=== PATIENT | female | born 1960 | race Caucasian/White ===

== ENCOUNTER 2018-08-30 10:28 | Inpatient (IN) ==
[2018-08-30] MEDS ORDERED: Metoclopramide 10 MG/2 ML VIAL IVP ONE (11:10)
[2018-08-30] MEDS ORDERED: 0.9 % Sodium Chloride 1,000 ML IVC ONE (11:10)
--- NOTE | 2018-08-30 11:15 | Emergency Department Note ---
Disposition Clinical Impression: Malaise, Hypokalemia Migraine Qualifiers: Migraine type: unspecified Status migrainosus presence: without status migrainosus Intractability: not intractable Qualified Code(s): G43.909 - Migraine, unspecified, not intractable, without status migrainosus Disposition: Admitted As Inpatient Condition: Fair Referrals: Eleuterio Saleh, OPERATIONS EXECUTIVE [Primary Care Provider] - Forms: ED Satisfaction Letter Time of Disposition: 13:11 Headache HPI - General Chief Complaint: ED Headache Stated Complaint: Headache, congestion Time Seen by Provider: 08/30/18 11:04 Source: patient, family Mode of arrival: wheelchair Limitations: no limitations Nursing Notes Reviewed: Yes Vital Signs Reviewed: Yes - History of Present Illness HPI Narrative: Patient presents to the ED via wheelchair with the chief complaint of headache, body aches. Patient reports she has been sick for about 3 weeks. Her was sick recently with similar symptoms. She does have a history of headaches but states this one is lasting longer than her previous ones. She denies any fever or chills. She is been having a productive cough but does have non-oxygen dependent COPD. She does have some chest tightness consistent with her previous COPD, but does have a new pleuritic component when she coughs. No history of DVT or PE. She states that she has been having some epigastric abdominal pain as well as nausea, decreased appetite, but no vomiting. reports she has been having some nonbloody, non-melanic diarrhea. Patient reports feeling very rundown and tired. She also has a history of MS Pain Scale: 10 - Related Data Home Medications Medication Instructions Recorded Confirmed Albuterol Sulfate [Proair 90 mcg IH DAILY 03/07/15 03/11/18 Respiclick] Aspirin 81 mg PO DAILY 03/07/15 03/11/18 BuPROPion SR (12 HR) [Wellbutrin 150 mg PO BID 03/07/15 03/11/18 SR] Clopidogrel [Plavix] 75 mg PO DAILY 03/07/15 03/11/18 Colesevelam HCl [Welchol] 625 mg PO DAILY 03/07/15 03/08/15 Divalproex Sodium [Depakote 500 mg PO BID 03/07/15 03/11/18 Sprinkle] Donepezil HCl [Donepezil HCl Odt] 10 mg PO DAILY 03/07/15 03/11/18 Ferrous Sulfate 325 mg PO BID 03/07/15 03/11/18 Gabapentin [Neurontin] 800 mg PO TID 03/07/15 03/11/18 Lansoprazole [Prevacid] 30 mg PO BIDAC 03/07/15 03/11/18 Levomefolate/B6/B12/Algal Oil 1 each PO AD 03/07/15 03/11/18 [Foltanx Rf Capsule] Lisinopril [Zestril] 2.5 mg PO DAILY 03/07/15 03/08/15 Loratadine [Claritin] 10 mg PO DAILY 03/07/15 03/11/18 Metformin [Glucophage] 500 mg PO BID 03/07/15 03/08/15 Nabumetone [Relafen] 500 mg PO BID 03/07/15 03/11/18 Ondansetron ODT [Zofran ODT] 4 mg SL BID 03/07/15 03/11/18 Oxycodone HCl [Oxycontin] 15 mg PO Q6H PRN 03/07/15 03/11/18 Quetiapine Fumarate [Seroquel] 50 mg PO DAILY 03/07/15 03/11/18 Raloxifene [Evista] 60 mg PO DAILY 03/07/15 03/11/18 Ranitidine HCl [Zantac] 150 mg PO BID 03/07/15 03/11/18 Tizanidine [Zanaflex] 2 mg PO QID 03/07/15 03/11/18 Topiramate [Topamax] 100 mg PO DAILY 03/07/15 03/11/18 Dexlansoprazole [Dexilant] 60 mg PO DAILY 03/11/18 03/11/18 Eluxadoline [Viberzi] 100 mg PO BID 03/11/18 03/11/18 Ezetimibe/Simvastatin [Vytorin each PO DAILY 03/11/18 10-80 mg Tablet] Rosuvastatin [Crestor] 40 mg PO DAILY 03/11/18 03/11/18 Teriflunomide [Aubagio] 7 mg PO DAILY 03/11/18 03/11/18 Tiotropium [Spiriva] 18 mcg IH 0700 03/11/18 03/11/18 predniSONE [PredniSONE] 20 mg PO DAILY 03/11/18 03/11/18 Previous Rx's Medication Instructions Recorded Sulfamethoxazole/Trimeth SS 1 each PO BID #14 tablet 09/30/15 [Bactrim] PredniSONE [Deltasone] 60 mg PO DAILY #15 tablet 03/11/18 Azithromycin [Zithromax] 0 mg PO Q24H #6 tablet 03/30/18 Benzonatate [Tessalon] 200 mg PO TID #20 capsule 03/30/18 Allergies Allergy/AdvReac Type Severity Reaction Status Date / Time No Known Allergies Allergy Verified 06/29/18 14:37 Review of Systems: As reviewed in the HPI. All other systems reviewed are negative or normal. Headache PMH - Past Medical History Medical history: Reports: diabetes, hyperlipidemia Female Surgical History: Reports: hysterectomy Psychiatric history: Reports: depression JOB SITE SUPERVISOR history: Reports: no JOB SITE SUPERVISOR history, bilateral tubal ligation - Social History Smoking Status: Current every day smoker Alcohol use: Reports: none Drug use: Reports: none Physical Exam CONSTITUTIONAL: [ill but non-toxic appearing, alert and in no acute distress] EYES: [EOMI, clear conjunctiva, PERRLA] HENT: [Normocephalic, atraumatic, moist mucus membranes, normal oropharynx] NECK: [normal inspection, full ROM, trachea midline, no obvious swelling] PULMONARY: [normal lung sounds bilaterally, normal chest rise and fall, no respiratory distress or stridor, no wheezes, no rales, no rhonchi CARDIOVASCULAR: [regular rate, regular rhythm, normal heart sounds, no murmurs, distal extremities are warm and well perfused] GASTROINSTESTINAL: [soft, non-tender, non-rigid, non-distended, no guarding, no rebound, normal bowel sounds] GENITOURINARY/RECTAL: [deferred] NEUROLOGIC: [Alert, oriented x3, normal speech, moves all extremities] EXTREMITIES: [Normal inspection, full ROM, no tenderness, no pedal edema, normal capillary refill] MUSCULOSKELETAL: [no gross deformities, atraumatic] SKIN: [No cyanosis, no diaphoresis, normal color, warm, no rash] PSYCHIATRIC: [flat affect] - General Limitations: no limitations General appearance: alert, in no apparent distress Course Course Narrative: Patient's head CT and chest x-ray are normal. Influenza negative. She is profoundly hypokalemic. We will replace with 40 by mouth and 40 IV. She will need to be admitted for further replacement rehydration. Patient family agreeable with plan - Reevaluation(s) Reevaluation #1: EKG shows sinus rhythm, rate 55, normal axis, flattened T waves throughout consistent with hypokalemia. No acute ischemic change Vital Signs Temperature 97.4 F L 08/30/18 10:41 Pulse Rate 57 08/30/18 10:41 Respiratory Rate 16 08/30/18 10:41 Blood Pressure 95/62 08/30/18 10:41 O2 Sat by Pulse Oximetry 96 08/30/18 10:41 Temperature 97.4 F L 08/30/18 10:41 Pulse Rate 54 08/30/18 13:01 Respiratory Rate 18 08/30/18 13:01 Blood Pressure 101/64 08/30/18 13:01 O2 Sat by Pulse Oximetry 97 08/30/18 13:01 Oxygen Delivery Oxygen Delivery Room Air Headache - Lab Data Result diagrams: 08/30/18 11:35 08/30/18 11:35 Lab Results 08/30/18 08/30/18 Range/Units 11:35 11:35 WBC 8.9 (4.3-11.1) K/mcL RBC 3.49 L (3.82-4.97) M/mcL Hgb 10.9 L (11.5-15.4) g/dL Hct 32.5 L (35.3-44.9) % MCV 93.1 (83.0-100.0) fL MCH 31.2 (28.0-33.3) pg MCHC 33.5 (31.6-35.5) g/dL RDW 14.0 (11.5-14.5) % Plt Count 187 (140-400) K/mcL MPV 11.0 (9.4-12.4) fL Immature Gran % 0.6 (0-4) % Seg Neutrophils % 76.4 % Lymphocytes % 12.5 % Monocytes % 9.6 % Eosinophils % 0.6 % Basophils % 0.3 % Neutrophils # 6.8 (1.6-8.9) K/mcL Lymphocytes # 1.1 (0.6-4.6) K/mcL Monocytes # 0.9 (0.0-1.3) K/mcL Eosinophils # 0.1 (0.0-0.6) K/mcL Basophils # 0.0 (0.0-0.2) K/mcL Sodium 139 (136-145) mEq/L Potassium 2.4 L* (3.5-5.1) mEq/L Chloride 105 (98-107) mEq/L Carbon Dioxide 22 L (23-29) mEq/L BUN 17 (6-20) mg/dL Creatinine 0.63 (0.60-1.20) mg/dL Est GFR ( Amer) > 60 (> 60) Est GFR (Non-Af Amer) > 60 (> 60) BUN/Creatinine Ratio 27 H (6-26) Glucose 121 H (70-105) mg/dL Calculated Osmolality 291 (280-300) Calcium 9.4 (8.6-10.3) mg/dL Creatine Kinase 42 (30-223) Units/L Troponin I < 0.03 (< 0.04) ng/mL
--- NOTE | 2018-08-30 11:30 | Emergency Department Note ---
Disposition Clinical Impression: Malaise Disposition: Still a Patient Forms: ED Satisfaction Letter General Adult HPI - General Chief complaint: ED Headache Stated complaint: Headache, congestion Time Seen by Provider: 08/30/18 11:04 Source: patient, family Mode of arrival: wheelchair Limitations: no limitations Nursing Notes Reviewed: Yes Vital Signs Reviewed: Yes - History of Present Illness HPI Narrative: ED ATTESTATION NOTE: I examined this patient and my medical decision-making was reviewed with the Resident Physician/ELECTRICAL MANUFACTURING ENGINEER/PA/Student. I have personally performed a face to face evaluation on this patient & I agree with the documented findings, disposition and treatment plan as described except to the extent set forth below. Patient was seen with emergency medicine resident Dr. JOSSELINE RABAGO please see copy of his note for details of this encounter Briefly: 58-year-old female 3 weeks of feeling poorly had similar symptoms which resolved patient does have a history of diabetes. Patient will undergo IV fluid rehydration screening labs to exclude the possibility of DKA and a flu swab. Disposition pending. Patient stable Pain Scale: 10 - Related Data Home Medications Medication Instructions Recorded Confirmed Albuterol Sulfate [Proair 90 mcg IH DAILY 03/07/15 03/11/18 Respiclick] Aspirin 81 mg PO DAILY 03/07/15 03/11/18 BuPROPion SR (12 HR) [Wellbutrin 150 mg PO BID 03/07/15 03/11/18 SR] Clopidogrel [Plavix] 75 mg PO DAILY 03/07/15 03/11/18 Colesevelam HCl [Welchol] 625 mg PO DAILY 03/07/15 03/08/15 Divalproex Sodium [Depakote 500 mg PO BID 03/07/15 03/11/18 Sprinkle] Donepezil HCl [Donepezil HCl Odt] 10 mg PO DAILY 03/07/15 03/11/18 Ferrous Sulfate 325 mg PO BID 03/07/15 03/11/18 Gabapentin [Neurontin] 800 mg PO TID 03/07/15 03/11/18 Lansoprazole [Prevacid] 30 mg PO BIDAC 03/07/15 03/11/18 Levomefolate/B6/B12/Algal Oil 1 each PO AD 03/07/15 03/11/18 [Foltanx Rf Capsule] Lisinopril [Zestril] 2.5 mg PO DAILY 03/07/15 03/08/15 Loratadine [Claritin] 10 mg PO DAILY 03/07/15 03/11/18 Metformin [Glucophage] 500 mg PO BID 03/07/15 03/08/15 Nabumetone [Relafen] 500 mg PO BID 03/07/15 03/11/18 Ondansetron ODT [Zofran ODT] 4 mg SL BID 03/07/15 03/11/18 Oxycodone HCl [Oxycontin] 15 mg PO Q6H PRN 03/07/15 03/11/18 Quetiapine Fumarate [Seroquel] 50 mg PO DAILY 03/07/15 03/11/18 Raloxifene [Evista] 60 mg PO DAILY 03/07/15 03/11/18 Ranitidine HCl [Zantac] 150 mg PO BID 03/07/15 03/11/18 Tizanidine [Zanaflex] 2 mg PO QID 03/07/15 03/11/18 Topiramate [Topamax] 100 mg PO DAILY 03/07/15 03/11/18 Dexlansoprazole [Dexilant] 60 mg PO DAILY 03/11/18 03/11/18 Eluxadoline [Viberzi] 100 mg PO BID 03/11/18 03/11/18 Ezetimibe/Simvastatin [Vytorin each PO DAILY 03/11/18 10-80 mg Tablet] Rosuvastatin [Crestor] 40 mg PO DAILY 03/11/18 03/11/18 Teriflunomide [Aubagio] 7 mg PO DAILY 03/11/18 03/11/18 Tiotropium [Spiriva] 18 mcg IH 0700 03/11/18 03/11/18 predniSONE [PredniSONE] 20 mg PO DAILY 03/11/18 03/11/18 Previous Rx's Medication Instructions Recorded Sulfamethoxazole/Trimeth SS 1 each PO BID #14 tablet 09/30/15 [Bactrim] PredniSONE [Deltasone] 60 mg PO DAILY #15 tablet 03/11/18 Azithromycin [Zithromax] 0 mg PO Q24H #6 tablet 03/30/18 Benzonatate [Tessalon] 200 mg PO TID #20 capsule 03/30/18 Allergies Allergy/AdvReac Type Severity Reaction Status Date / Time No Known Allergies Allergy Verified 06/29/18 14:37 Past Medical History - Past Medical History Medical history: Reports: diabetes, hyperlipidemia Surgical history: Reports: hysterectomy Psychiatric history: Reports: depression AIRPLANE PILOT COMMERCIAL history: Reports: no AIRPLANE PILOT COMMERCIAL history, bilateral tubal ligation - Social History Smoking Status: Current every day smoker Smokeless Tobacco Status: No Alcohol use: Reports: none Drug use: Reports: none Physical Exam - General Limitations: no limitations General appearance: alert, in no apparent distress Course Vital Signs Temperature 97.4 F L 08/30/18 10:41 Pulse Rate 57 08/30/18 10:41 Respiratory Rate 16 08/30/18 10:41 Blood Pressure 95/62 08/30/18 10:41 O2 Sat by Pulse Oximetry 96 08/30/18 10:41 Temperature 97.4 F L 08/30/18 10:41 Pulse Rate 57 08/30/18 11:17 Respiratory Rate 18 08/30/18 11:17 Blood Pressure 103/64 08/30/18 11:17 O2 Sat by Pulse Oximetry 99 08/30/18 11:17 Oxygen Delivery Oxygen Delivery Room Air
[2018-08-30 12:08] LABS: Basophils % 0.3 %; Eosinophils # 0.1 K/mcL (0.0-0.6); Eosinophils % 0.6 %; Hematocrit 32.5 % (35.3-44.9); Hemoglobin 10.9 g/dL (11.5-15.4); Immature Granulocytes % 0.6 % (0-4); Lymphocytes # 1.1 K/mcL (0.6-4.6); Lymphocytes % 12.5 %; Mean Corpuscular HGB Conc 33.5 g/dL (31.6-35.5); Mean Corpuscular Hemoglobin 31.2 pg (28.0-33.3); Mean Corpuscular Volume 93.1 fL (83.0-100.0); Monocytes # 0.9 K/mcL (0.0-1.3); Monocytes % 9.6 %; Neutrophils # 6.8 K/mcL (1.6-8.9); Platelet Count 187 K/mcL (140-400); Red Blood Count 3.49 M/mcL (3.82-4.97); Segmented Neutrophils % 76.4 %
[2018-08-30 12:34] LABS: BUN/Creatinine Ratio 27 (6-26); Blood Urea Nitrogen 17 mg/dL (6-20); Calcium 9.4 mg/dL (8.6-10.3); Carbon Dioxide 22 mEq/L (23-29); Chloride 105 mEq/L (98-107); Creatine Kinase 42 Units/L (30-223); Glucose 121 mg/dL (70-105); Osmolality,Calculated 291 (280-300); Potassium 2.4 mEq/L (3.5-5.1); Sodium 139 mEq/L (136-145); eGFR For Non-African Americans > 60 (> 60)
[2018-08-30] MEDS ORDERED: Potassium Chloride 40 MEQ, Lidocaine 1% 2 ML in D5% in Water 500 ML IVPB ONE (12:35)
[2018-08-30 12:41] LABS: Troponin I < 0.03 ng/mL (< 0.04)
[2018-08-30] MEDS ORDERED: Naloxone 0.4 MG/ML INJ IVP PRN (13:27)
[2018-08-30] MEDS ORDERED: Fluticasone Propionate Nasal 50 MCG/SPRAY BOTTLE NS PRN (15:59)
--- NOTE | 2018-08-30 16:09 | Internal Med History&Physical ---
Date of Encounter: 08/30/18 Time of Encounter: 15:54 Internal Medicine - H&P: HPI Chief complaint: headache Admitted From: Home Plans for Post Hospital Care: Home History of present illness: Ms. Johnson is a 58 year old female with histry of MS in between neurologist currently using left over medications, current everyday smoker presented to [facility] with complaint of headache as per patient she reports tshat she has history of headaches but states that this one is lasting longer. she describes her headache as located all over hear head and sharp in nature. she rates it as a 5/10. she denies photophobia, nausea or vomiting. in addition to above she feels fatigued and has all over body aches. her who is at bedside reports that he recently had similar symptoms that self resolved. she cannot recall her medical history denies hstory of cancers. does report tahts he is a current everyday smoker. she has had weight loss for the past few months. as per and rest of the family she has lost significant amount of weight. in addition to above she has had diarrhea for the past month that she describes as non-bloody and water. she uses the bathroom atleast 7x per day. she has used the bathroom 7 x today. she denies any blood in her stools. today. she denies fever, chills, has no abdominal pain, Nausea or vomiting associated with diarrhea. she denies CP or SOB. denies recent falls or head trauma. while in [facility] she was found to have hypokalemia and was endorsed for further management of her symptoms. Past Med Surg Social Fam HX - Past Medical History Medical history: diabetes, hyperlipidemia Additional medical history: MS Psychiatric history: depression - Past Surgical History Surgical History: hysterectomy Additional surgical history: bilateral carpal tunnel, right elbow sx, - Social History Smoking Status: Current every day smoker Smokeless Tobacco Status: No Alcohol use: none Drug use: none - Family History Maternal Hx Family Cancer: Yes Father Living Status: Hx Family Cardiac Disorders: Yes Mother Living Status: Hx Family Cardiac Disorders: Yes Internal Medicine - H&P: Meds Albuterol Sulfate [Proair Respiclick] 90 mcg IH Q6H PRN 03/07/15 [History] Aspirin 81 mg PO DAILY 03/07/15 [History] Clopidogrel [Plavix] 75 mg PO DAILY 03/07/15 [History] Donepezil HCl [Donepezil HCl Odt] 10 mg PO DAILY 03/07/15 [History] Ferrous Sulfate 325 mg PO BID 03/07/15 [History] Gabapentin [Neurontin] 800 mg PO TID 03/07/15 [History] Levomefolate/B6/B12/Algal Oil [Foltanx Rf Capsule] 1 each PO AD 03/07/15 [History] Lisinopril [Zestril] 2.5 mg PO DAILY 03/07/15 [History] Metformin [Glucophage] 500 mg PO DAILY 03/07/15 [History] Nabumetone [Relafen] 500 mg PO BID 03/07/15 [History] Ondansetron ODT [Zofran ODT] 4 mg SL BID PRN 03/07/15 [History] Quetiapine Fumarate [Seroquel] 50 mg PO HS 03/07/15 [History] Raloxifene [Evista] 60 mg PO DAILY 03/07/15 [History] Ranitidine HCl [Zantac] 150 mg PO BID 03/07/15 [History] Topiramate [Topamax] 100 mg PO HS 03/07/15 [History] Teriflunomide [Aubagio] 7 mg PO DAILY 03/11/18 [History] Atorvastatin [Lipitor] 40 mg PO HS 08/30/18 [History] Bifidobacterium Infantis [Align] 4 mg PO DAILY 08/30/18 [History] Calcium Carbonate/Vitamin D3 [Calcium 500 + Vit D Caplet] 1 each PO BID 08/30/18 [History] Cetirizine HCl [24Hour Allergy] 10 mg PO DAILY 08/30/18 [History] Divalproex (12 HR) [Depakote (12 HR)] 500 mg PO BID 08/30/18 [History] Escitalopram [Lexapro] 10 mg PO DAILY 08/30/18 [History] Fluticasone Propionate Nasal [Flonase] 100 mcg NS DAILY PRN 08/30/18 [History] Furosemide [Lasix] 20 mg PO DAILY 08/30/18 [History] Lipase/Protease/Amylase [Zenpep Dr 40,000 Units Capsule] 1 each PO TIDWM 08/30/18 [History] Vit #108/Iron/FA [ One Tablet] 1 each PO DAILY 08/30/18 [History] Simethicone [Gas-X] 80 mg PO TID 08/30/18 [History] Teriflunomide [Aubagio] 7 mg PO 08/30/18 [History] Allergy/AdvReac Type Severity Reaction Status Date / Time No Known Allergies Allergy Verified 06/29/18 14:37 All Systems PM: A 10-system review of systems was performed and is negative for pertinent findings except as documented above in the HPI. - Constitutional Vitals: Temp Pulse Resp BP Pulse Ox 97.4 F L 54 18 101/64 97 08/30/18 10:41 08/30/18 13:01 08/30/18 13:01 08/30/18 13:01 08/30/18 13:01 Exam: General: Patient is alert, oriented, cachectic Head: atraumatic, normocephalic, Eye: normal appearance, PERRL, no scleral icterus, no conjunctival injection ENT: mucous membranes dry, normal external ear exam Neck: normal inspection, trachea midline, full ROM, no carotid bruits Chest: normal inspection, symmetric chest rise Respiratory: Good respiratory effort. Bilateral breath sounds are clear without wheezing, crackles, or rhonchi. Cardiovascular: Regular rate and rhythm. s1 and s2 No clicks, rubs, gallops, or murmors. Abdomen: Bowel sounds present normoactive x-4 quadrants. Abdomen is soft, nondistended. no Epigastric tenderness. No guarding or rebound. No organomegaly noted, scaphoid musculoskeletal: Spontaneously moving all extremities. no edema, no calf tenderness cachectic Skin: warm, dry, intact. Neuro: Alert and oriented x4.no focal deficit Psych: Patient's affect is normal Internal Med - H&P Results - Labs CBC & Chem 7: 08/30/18 11:35 08/30/18 11:35 Labs: Short CBC 08/30/18 Range/Units 11:35 WBC 8.9 (4.3-11.1) K/mcL Hgb 10.9 L (11.5-15.4) g/dL Hct 32.5 L (35.3-44.9) % Plt Count 187 (140-400) K/mcL Neutrophils # 6.8 (1.6-8.9) K/mcL BMP 08/30/18 11:35 Sodium 139 Potassium 2.4 L* Chloride 105 Carbon Dioxide 22 L BUN 17 Creatinine 0.63 Glucose 121 H Calcium 9.4 Cardiac Enzymes 08/30/18 Range/Units 11:35 Troponin I < 0.03 (< 0.04) ng/mL - EKG Data -: EKG Interpreted by Myself (sinus bradycardia, normal axis, QTC 430 ) - Impressions ITS Impressions Head CT 08/30/18 11:10 IMPRESSION: No acute intracranial abnormality. D/ / Chirag Burden MD / Chirag Burden MD Interpreting Provider: Chirag Burden MD Chest X-Ray 08/30/18 11:11 IMPRESSION: No acute cardiopulmonary process. D/ / Tacho Washington MD / Tacho Washington MD Interpreting Provider: Tacho Washington MD - Assessment and Plan (1) Headache Current Visit: No Status: Acute Assessment and plan: patient with headache who has history of headaches she denies any weakness, has bowel or bladder incontinence continue with tylenol as her headaches are improving CT head - IMPRESSION: No acute intracranial abnormality. will follow brain MRI Qualifiers: Headache type: unspecified Headache chronicity pattern: acute headache Intractability: intractable Qualified Code(s): R51 - Headache (2) Diarrhea Current Visit: Yes Status: Acute Assessment and plan: appears to be chronic as she has had the diarrhea for >2 weeks ?secondary to malabsorption vs infectious etiology rule out other etiologies ( celiac) she denies any history of GI disease however as per med rec she is on pancreatic enzymes GI panel ordered continue with pancreatic lipase amylase and lipase ordered follow Ct Abdomen and pelvis clear liquid diet continue with IV hydration- watch for overload Qualifiers: Diarrhea type: unspecified type Qualified Code(s): R19.7 - Diarrhea, unspecified (3) Hypokalemia Current Visit: Yes Status: Acute Assessment and plan: most likely secondary to chronic diarrhea was replaced in the Ed [facility] was supplemented in [facility] will follow potassium level 16:00 continue to monitor electrolytes urine potassium (4) Sinus bradycardia Current Visit: Yes Status: Acute Assessment and plan: due to unknown etiology is on Aricept- will hold hypokalemia- treated continue with tele monitoring TSH and cortisol level (5) Multiple sclerosis Current Visit: Yes Status: Acute Assessment and plan: continue home medications reports that she is in between neurologist and is supposed to be seen by n eurologist at [facility] she denies loss of function of her extremities, no loss of bladder control, no vision changes or vision loss MRI head ordered will follow consider neurology consult if she develops symptoms of MS exacerbation LFTs ordered (6) COPD (chronic obstructive pulmonary disease) Current Visit: No Status: Chronic Assessment and plan: not in exacerbation continue with home inhalers CXR No acute cardiopulmonary process. Qualifiers: COPD type: unspecified COPD Qualified Code(s): J44.9 - Chronic obstructive pulmonary disease, unspecified (7) Seizure disorder Current Visit: No Status: Chronic Assessment and plan: continue with home medications seizure precautions (8) Cachectic Current Visit: Yes Status: Acute Assessment and plan: nutrition consult reports losing significant amount of weight BMI is 17 continue with IV hydration prealbumin (9) Declining functional status Current Visit: Yes Status: Acute Assessment and plan: CM/ SW and Pt/Ot consulted (10) DVT prophylaxis Current Visit: No Status: Acute Assessment and plan: heparin sc - Time Spent With Patient Total time spent is greater than 50% in coordination of care (as documented) at patient's floor/unit and/or counseling patient:
[2018-08-30] MEDS ORDERED: Acetaminophen 325 MG TABLET PO PRN (16:21)
[2018-08-30 18:01] LABS: Albumin 3.9 g/dL (3.5-5.7); Albumin/Globulin Ratio 1.1 (1.1-2.2); Bilirubin,Direct 0.1 mg/dL (0.0-0.2); Bilirubin,Indirect 0.4 mg/dL (0.0-1.2); Bilirubin,Total 0.5 mg/dL (0.3-1.0); Globulin 3.4 g/dL (2.4-3.5); Phosphorous 3.6 mg/dL (2.7-4.5); Total Protein 7.3 g/dL (6.4-8.9)
[2018-08-30 18:12] LABS: Thyroid Stimulating Hormone 0.554 mcIU/mL (0.340-5.600)
[2018-08-30] MEDS: 0.9 % Sodium Chloride 1,000 ML IVC SCH (18:18)
[2018-08-30] MEDS: *HR* Heparin 5,000 UNIT/ML VIAL SQ SCH ×2 (18:18→21:34)
[2018-08-30] MEDS: [UNRECOGNIZED DRUG - OTHER] PO SCH (18:23)
[2018-08-30] MEDS: Topiramate 100 MG TABLET PO SCH (21:33)
[2018-08-30] MEDS: Divalproex (12 HR) 500 MG TABLET PO SCH (21:33)
[2018-08-30] MEDS: Gabapentin 400 MG CAPSULE PO SCH (21:33)
[2018-08-30] MEDS: Famotidine 20 MG TABLET PO SCH (21:46)
[2018-08-30 23:10] LABS: Adenovirus Not Detected (Not Detect); Coronavirus 229E Not Detected (Not Detect); Coronavirus HKU1 Not Detected (Not Detect); Coronavirus NL63 Not Detected (Not Detect); Coronavirus OC43 Not Detected (Not Detect); Human Metapneumovirus Not Detected (Not Detect); Human Rhinovirus/Enterovirus Not Detected (Not Detect)
[2018-08-30 23:11] LABS: Bordetella Pertussis Not Detected (Not Detect); Chlamydophila pneumoniae Not Detected (Not Detect); Influenza A Subtype 2009 H1 Not Detected (Not Detect); Influenza A Untypeable Not Detected (Not Detect); Influenza B Not Detected (Not Detect); Mycoplasma pneumoniae Not Detected (Not Detect); Parainfluenza Virus 1 Not Detected (Not Detect); Parainfluenza Virus 2 Not Detected (Not Detect); Parainfluenza Virus 3 Not Detected (Not Detect); Parainfluenza Virus 4 Not Detected (Not Detect); Respiratory Syncytial Virus Not Detected (Not Detect)
[2018-08-31 00:47] LABS: Bilirubin,Urine Negative (Negative); Blood,Urine Negative (Negative); Clarity,Urine Cloudy (Clear); Color,Urine Yellow (Yellow); Glucose,Urine (UA) Normal (Normal); Ketones,Urine Negative (Negative); Leukocyte Esterase,Urine Moderate (Negative); Nitrite,Urine Negative (Negative); PH,Urine 6.5 pH Units (5.0-8.0); Protein,Urine Negative (Neg-Trace); Urobilinogen,Urine Normal (Normal)
[2018-08-31 00:52] LABS: Bacteria,Urine Many per hpf (None-Few); Hyaline Casts,Urine None Seen per lpf (None-Few); RBC,Urine 0-3 per hpf (0-3); Squamous Epithelial Cell,Urine None Seen per lpf (None-Few); WBC,Urine 30-50 per hpf (0-3)
[2018-08-31 04:54] LABS: Basophils % 0.5 %; Eosinophils # 0.1 K/mcL (0.0-0.6); Eosinophils % 0.9 %; Hematocrit 29.7 % (35.3-44.9); Hemoglobin 9.4 g/dL (11.5-15.4); Immature Granulocytes % 0.7 % (0-4); Lymphocytes # 1.8 K/mcL (0.6-4.6); Lymphocytes % 31.2 %; Mean Corpuscular HGB Conc 31.6 g/dL (31.6-35.5); Mean Corpuscular Hemoglobin 30.2 pg (28.0-33.3); Mean Corpuscular Volume 95.5 fL (83.0-100.0); Mean Platelet Volume 10.8 fL (9.4-12.4); Monocytes # 0.7 K/mcL (0.0-1.3); Monocytes % 11.5 %; Neutrophils # 3.1 K/mcL (1.6-8.9); Platelet Count 181 K/mcL (140-400); Red Blood Count 3.11 M/mcL (3.82-4.97); Red Cell Distribution Width 14.1 % (11.5-14.5); Segmented Neutrophils % 55.2 %
[2018-08-31 05:15] LABS: Alanine Aminotransferase 35 Units/L (7-52); Albumin 3.3 g/dL (3.5-5.7); Albumin/Globulin Ratio 1.2 (1.1-2.2); Alkaline Phosphatase 44 Units/L (34-104); Aspartate Amino Transferase 21 Units/L (13-39); BUN/Creatinine Ratio 21 (6-26); Bilirubin,Total 0.4 mg/dL (0.3-1.0); Blood Urea Nitrogen 11 mg/dL (6-20); Calcium 8.4 mg/dL (8.6-10.3); Carbon Dioxide 23 mEq/L (23-29); Chloride 113 mEq/L (98-107); Globulin 2.8 g/dL (2.4-3.5); Glucose 85 mg/dL (70-105); Magnesium 2.4 mg/dL (1.6-2.6); Osmolality,Calculated 293 (280-300); Phosphorous 1.9 mg/dL (2.7-4.5); Potassium 3.5 mEq/L (3.5-5.1); Sodium 142 mEq/L (136-145); Total Protein 6.1 g/dL (6.4-8.9); eGFR For Non-African Americans > 60 (> 60)
[2018-08-31 05:16] LABS: Chol/HDL Ratio 4.6 (0-4.9)
[2018-08-31] MEDS: *HR* Heparin 5,000 UNIT/ML VIAL SQ SCH ×3 (05:31→21:54)
[2018-08-31 06:31] LABS: Estimated Average Glucose 114 mg/dl; Hemoglobin A1C 5.6 %
[2018-08-31 06:39] LABS: Campylobacter by PCR Not detected (Not detect); Cryptosporidium by PCR Not detected (Not detect); E. coli O157 by PCR Not detected (Not detect); Enteroaggregative E.coli(EAEC) Not detected (Not detect); Enteropathogenic E.coli(EPEC) Not detected (Not detect); Enterotoxigenic E.coli (ETEC) Not detected (Not detect); Plesiomonas shigelloides PCR Not detected (Not detect); Salmonella PCR Not detected (Not detect); Shig/EnteroinvasiveE coli EIEC Not detected (Not detect); Shigalike tox-prod E coli STEC Not detected (Not detect); Vibrio PCR Not detected (Not detect); Vibrio cholerae PCR Not detected (Not detect); Yersinia enterocolitica PCR Not detected (Not detect)
[2018-08-31 06:40] LABS: Adenovirus F 40/41 PCR Not detected (Not detect); Astrovirus PCR Not detected (Not detect); Cyclospora cayetanensis PCR Not detected (Not detect); Entamoeba histolytica PCR Not detected (Not detect); Giardia lamblia PCR Not detected (Not detect); Norovirus GI/GII PCR Not detected (Not detect); Rotavirus A PCR Not detected (Not detect); Sapovirus PCR Not detected (Not detect)
[2018-08-31 06:42] LABS: C.difficile Toxin A/B Gene PCR DETECTED (Not detect)
--- NOTE | 2018-08-31 07:01 | Event Note ---
Date of Encounter: 08/31/18 Time of Encounter: 06:55 Alerted by pts. nurse that pt. is positive for C. Diff. PO Flagyl and vancomycin ordered.
[2018-08-31] MEDS ORDERED: Furosemide 20 MG TABLET PO SCH (09:00)
[2018-08-31] MEDS ORDERED: DONEPEZIL HCL 10 MG PO SCH (09:00)
[2018-08-31] MEDS ORDERED: metroNIDAZOLE 500 MG TABLET PO SCH (09:00)
[2018-08-31] MEDS: 0.9 % Sodium Chloride 1,000 ML IVC SCH (09:22)
[2018-08-31] MEDS: Aspirin 81 MG TAB.CHEW PO SCH (09:30)
[2018-08-31] MEDS: Cholecalciferol (D-3) 1,000 UNIT TABLET PO SCH (09:30)
[2018-08-31] MEDS: Loratadine 10 MG TABLET PO SCH (09:31)
[2018-08-31] MEDS: Gabapentin 400 MG CAPSULE PO SCH ×3 (09:32→19:30)
[2018-08-31] MEDS: Lactobacillus 1 EACH CAP.SPRINK PO SCH (09:32)
[2018-08-31] MEDS: Divalproex (12 HR) 500 MG TABLET PO SCH ×2 (09:33→21:54)
[2018-08-31] MEDS: Famotidine 20 MG TABLET PO SCH ×2 (09:33→18:18)
[2018-08-31] MEDS: Vancomycin Oral Soln 125 MG/2.5 ML UDC PO SCH ×4 (09:33→21:54)
[2018-08-31] MEDS: Prenatal Vit/FA 1 EACH TABLET PO SCH (09:33)
[2018-08-31] MEDS: TERIFLUNOMIDE 7 MG PO SCH (09:34)
[2018-08-31] MEDS: Cefdinir 300 MG CAPSULE PO SCH ×2 (09:34→19:30)
[2018-08-31] MEDS: *HR* OxyCODONE/APAP 5/325 TABLET PO PRN (13:13)
--- NOTE | 2018-08-31 13:45 | Internal Med Progress Note ---
Hospitalist Progress Note - Encounter Date of Encounter: 08/31/18 Time of Encounter: 08:00 - Subjective Interval History: Patient was seen and examined at bedside. Continues to have more than 4 bowel movements a day. She has had 3 watery bowel movements this morning. Her headaches has resolved. She continues to deny any vision loss, no weakness of her extremities. I discussed the lab findings with her and her and they understand. They are erring in agreement with plan of care. I discussed that she is to remain nothing by mouth since she continues to have watery diarrhea and she was assured that she is being properly hydrated with IV fluids. She denies fever, chills, palpitations or chest pain. - Exam Vitals: Temp Pulse Resp BP Pulse Ox 97.9 F 52 16 100/58 96 08/31/18 11:38 08/31/18 11:38 08/31/18 11:38 08/31/18 11:38 08/31/18 11:38 Exam: General: Patient is alert, oriented, cachectic Head: atraumatic, normocephalic, Eye: normal appearance, PERRL, no scleral icterus, no conjunctival injection ENT: mucous membranes dry, normal external ear exam Neck: normal inspection, trachea midline, full ROM, no carotid bruits Chest: normal inspection, symmetric chest rise Respiratory: Good respiratory effort. Bilateral breath sounds are clear without wheezing, crackles, or rhonchi. Cardiovascular: Regular rate and rhythm. s1 and s2 No clicks, rubs, gallops, or murmors. Abdomen: Bowel sounds present normoactive x-4 quadrants. Abdomen is soft, nondistended. no Epigastric tenderness. No guarding or rebound. No organomegaly noted, scaphoid musculoskeletal: Spontaneously moving all extremities. no edema, no calf tenderness cachectic Skin: warm, dry, intact. Neuro: Alert and oriented x4.no focal deficit Psych: Patient's affect is normal - Assessment and Plan (1) Diarrhea Current Visit: Yes Status: Acute Assessment and Plan: appears to be chronic as she has had the diarrhea for >2 weeks Cdif toxin positive PCR is negative - started on oral vancomycin most likely also malabsorbtive also as she is on pancreatic enzymes- rule out otehr etiologies ( celiac) NPO as se continues to have >4 BMs a day GI consulted will follow recommendations amylase and lipase WNL NPO continue with IV hydration- watch for overload CT A/P IMPRESSION: Scattered consolidative and nodular opacities in the lung bases compatible with inflammatory process or infection. Chest CT follow-up in 3 months is recommended to ensure resolution of the nodular opacities. No acute inflammatory change identified in the abdomen or pelvis. Bilateral punctate nephrolithiasis. (2) C. difficile diarrhea Current Visit: Yes Status: Acute Assessment and Plan: started on oral vancomycin Gi consulted will follow recommendations rest of the management as above (3) Influenza A Current Visit: Yes Status: Acute Assessment and Plan: started on tamiflu continue with supportive measures CT with Scattered consolidative and nodular opacities in the lung bases compatible with inflammatory process or infection. Chest CT follow-up in 3 months is recommended to ensure resolution of the nodular opacities. (4) Hypokalemia Current Visit: Yes Status: Acute Assessment and Plan: most likely secondary to chronic diarrhea replaced and resolved magensium WNL continue to monitor electrolytes and replace as needed urine potassium 9.7 (5) Sinus bradycardia Current Visit: Yes Status: Acute Assessment and Plan: due to unknown etiology is on Aricept- will hold hypokalemia- treated continue with tele monitoring TSH 0.554 cortisol level 4.7 taken at 17:14 (6) Hypophosphatemia Current Visit: Yes Status: Acute Assessment and Plan: replaced will follow in AM (7) Multiple sclerosis Current Visit: Yes Status: Acute Assessment and Plan: continue home medications reports that she is in between neurologist and is supposed to be seen by neurologist at [facility] she denies loss of function of her extremities, no loss of bladder control, no vision changes or vision loss MRI- A few nonspecific tiny foci of increased signal are noted in the white matter bilaterally. These are indeterminate may represent small vessel ischemic change. Given history,could represent sequela multiple sclerosis. There is no acute infarct. There is no finding to suggest plaque activity. LFTs WNL discussed case with Dr. Duvall with neurology who recommended to continue home medications as she is not in acute exacerbation. he recommended to continue to treat the infections (influenza and c.dif) (8) COPD (chronic obstructive pulmonary disease) Current Visit: No Status: Chronic Assessment and Plan: not in exacerbation continue with home inhalers (9) Seizure disorder Current Visit: No Status: Chronic Assessment and Plan: continue with home medications seizure precautions (10) Cachectic Current Visit: Yes Status: Acute Assessment and Plan: nutrition consulted reports losing significant amount of weight BMI is 17 continue with IV hydration prealbumin 15.9 (11) Declining functional status Current Visit: Yes Status: Acute Assessment and Plan: CM/ SW and Pt/Ot consulted (12) UTI (urinary tract infection) Current Visit: Yes Status: Acute Assessment and Plan: UA positive on cefdinir for 3 days follow cx (13) DVT prophylaxis Current Visit: No Status: Acute Assessment and Plan: heparin sc (14) Headache Current Visit: No Status: Resolved Assessment and Plan: patient with headache who has history of headaches she denies any weakness, has bowel or bladder incontinence continue with tylenol as her headaches have resolved CT head - IMPRESSION: No acute intracranial abnormality. will follow brain MRI - Time Spent with Patient Total time spent is greater than 50% in coordination of care (as documented) at patient's floor/unit and/or counseling patient: Internal Medicine: Result - Labs CBC & Chem 7: 08/31/18 04:40 08/31/18 04:40 Labs: Short CBC 08/31/18 Range/Units 04:40 WBC 5.7 (4.3-11.1) K/mcL Hgb 9.4 L D (11.5-15.4) g/dL Hct 29.7 L (35.3-44.9) % Plt Count 181 (140-400) K/mcL Neutrophils # 3.1 (1.6-8.9) K/mcL BMP 08/30/18 08/31/18 17:14 04:40 Sodium 142 Potassium 3.0 L 3.5 Chloride 113 H Carbon Dioxide 23 BUN 11 Creatinine 0.53 L Glucose 85 Calcium 8.4 L Liver Function 08/30/18 08/31/18 Range/Units 17:14 04:40 Total Bilirubin 0.5 0.4 (0.3-1.0) mg/dL Direct Bilirubin 0.1 (0.0-0.2) mg/dL AST 28 21 (13-39) Units/L ALT 47 35 (7-52) Units/L Alkaline Phosphatase 54 44 (34-104) Units/L Albumin 3.9 3.3 L (3.5-5.7) g/dL Urine 08/30/18 Range/Units 23:50 Urine Color Yellow (Yellow) Urine Clarity Cloudy A (Clear) Urine pH 6.5 (5.0-8.0) pH Units Ur Specific [place] 1.020 (1.010-1.025) Urine Protein Negative (Neg-Trace) mg/dL Urine Glucose (UA) Normal (Normal) mg/dL - Impressions Impressions Abdomen/Pelvis CT 08/30/18 15:57 IMPRESSION: Scattered consolidative and nodular opacities in the lung bases compatible with inflammatory process or infection. Chest CT follow-up in 3 months is recommended to ensure resolution of the nodular opacities. No acute inflammatory change identified in the abdomen or pelvis. Bilateral punctate nephrolithiasis. D/ / Yvon Fuentes / Yvon Fuentes Interpreting Provider: Yvon Fuentes Brain MRI 08/30/18 15:57 IMPRESSION: A few nonspecific tiny foci of increased signal are noted in the white matter bilaterally. These are indeterminate may represent small vessel ischemic change. Given history, the stomach could represent sequela multiple sclerosis. There is no acute infarct. There is no finding to suggest plaque activity. D/ / John Brunson / John Brunson Interpreting Provider: John Brunson Consult Discharge Plan - Plan Referrals: Eleuterio Saleh, ENAMEL BUFFER [Primary Care Provider] - (1) Diarrhea Qualifiers: Diarrhea type: presumed infectious Qualified Code(s): R19.7 - Diarrhea, unspecified (8) COPD (chronic obstructive pulmonary disease) Qualifiers: COPD type: unspecified COPD Qualified Code(s): J44.9 - Chronic obstructive pulmonary disease, unspecified (12) UTI (urinary tract infection) Qualifiers: Urinary tract infection type: acute cystitis Hematuria presence: without hematuria Qualified Code(s): N30.00 - Acute cystitis without hematuria (14) Headache Qualifiers: Headache type: unspecified Headache chronicity pattern: acute headache Intractability: intractable Qualified Code(s): R51 - Headache
[2018-08-31] MEDS ORDERED: *HR* Atropine Sulfate 1 MG/10 ML SYRINGE ONE (17:38)
[2018-08-31] MEDS ORDERED: *HR* Atropine Sulfate 1 MG/10 ML SYRINGE IVP ONE (18:17)
[2018-08-31] MEDS: [UNRECOGNIZED DRUG - OTHER] PO SCH (18:18)
[2018-08-31] MEDS: Ringers Solution, Lactated 1,000 ML IVC SCH (18:25)
[2018-08-31] MEDS ORDERED: *HR* Atropine Sulfate 1 MG/10 ML SYRINGE IVP PRN (18:35)
[2018-08-31] MEDS: Topiramate 100 MG TABLET PO SCH (21:54)
[2018-09-01] MEDS ORDERED: *HR* Atropine Sulfate 1 MG/ML VIAL IVP ONE (02:44)
[2018-09-01] MEDS ORDERED: *HR* Atropine Sulfate 1 MG/10 ML SYRINGE ONE (02:48)
[2018-09-01] MEDS ORDERED: *HR* Atropine Sulfate 1 MG/10 ML SYRINGE IVP ONE (02:51)
[2018-09-01 03:45] LABS: Hematocrit 29.3 % (35.3-44.9); Hemoglobin 9.5 g/dL (11.5-15.4); Mean Corpuscular HGB Conc 32.4 g/dL (31.6-35.5); Mean Corpuscular Hemoglobin 30.3 pg (28.0-33.3); Mean Corpuscular Volume 93.3 fL (83.0-100.0); Mean Platelet Volume 10.7 fL (9.4-12.4); Platelet Count 177 K/mcL (140-400); Red Blood Count 3.14 M/mcL (3.82-4.97); Red Cell Distribution Width 14.1 % (11.5-14.5)
[2018-09-01 04:07] LABS: BUN/Creatinine Ratio 15 (6-26); Blood Urea Nitrogen 7 mg/dL (6-20); Calcium 8.3 mg/dL (8.6-10.3); Carbon Dioxide 20 mEq/L (23-29); Chloride 115 mEq/L (98-107); Glucose 77 mg/dL (70-105); Osmolality,Calculated 295 (280-300); Potassium 2.8 mEq/L (3.5-5.1); Sodium 144 mEq/L (136-145); eGFR For Non-African Americans > 60 (> 60)
[2018-09-01] MEDS: Ringers Solution, Lactated 1,000 ML IVC SCH ×3 (04:30→23:26)
[2018-09-01] MEDS ORDERED: Potassium Chloride 40 MEQ, Lidocaine 1% 2 ML in D5% in Water 500 ML IVPB ONE (05:45)
--- NOTE | 2018-09-01 05:51 | Event Note ---
Date of Encounter: 09/01/18 Time of Encounter: 05:41 Alerted by patient's nurse that patient's potassium is 2.8 this morning. Patient has been bradycardic and was moved to 2 N. from for episodes of extreme bradycardia. 40 mEq potassium rider with lidocaine ordered. F/u labs to be monitored.
[2018-09-01] MEDS: *HR* Heparin 5,000 UNIT/ML VIAL SQ SCH ×3 (06:27→21:10)
[2018-09-01] MEDS: Aspirin 81 MG TAB.CHEW PO SCH (08:02)
[2018-09-01] MEDS: Divalproex (12 HR) 500 MG TABLET PO SCH ×2 (08:02→21:08)
[2018-09-01] MEDS: Gabapentin 400 MG CAPSULE PO SCH ×3 (08:02→21:08)
[2018-09-01] MEDS: Lactobacillus 1 EACH CAP.SPRINK PO SCH (08:03)
[2018-09-01] MEDS: Cholecalciferol (D-3) 1,000 UNIT TABLET PO SCH (08:03)
[2018-09-01] MEDS: Famotidine 20 MG TABLET PO SCH ×2 (08:03→16:39)
[2018-09-01] MEDS: Loratadine 10 MG TABLET PO SCH (08:03)
[2018-09-01] MEDS: *HR* OxyCODONE/APAP 5/325 TABLET PO PRN (08:04)
[2018-09-01] MEDS: TERIFLUNOMIDE 7 MG PO SCH (08:04)
[2018-09-01] MEDS: Cefdinir 300 MG CAPSULE PO SCH ×2 (08:04→21:09)
[2018-09-01] MEDS ORDERED: Ondansetron 4 MG/2 ML VIAL IVP PRN (08:11)
--- NOTE | 2018-09-01 08:25 | Cardiology Consult Note ---
<Christiano Nunez - Last Filed: 09/01/18 13:15> Date of Encounter: 09/01/18 Time of Encounter: 08:12 Assessment and Plan (1) Sinus bradycardia Current Visit: Yes Status: Acute Telemetry revealed significant sinus bradycardia with heart rate in the 40s with a 3.8 second sinus pause. Patient was treated with Atropine x1. The patient is asymptomatic and blood pressure remains stable. Dopamine was ordered to bedside and transcutaneous pacer pads were placed. Echo ending. NPO after midnight for pharmacologic stress test. Continue telemetry monitoring. Director Of Agriculture consulted to evaluate for PACER insertion. (2) Hypokalemia Current Visit: Yes Status: Acute Potassium level 2.4 on arrival. Random cortisol level within normal limits. Continue potassium supplementation. Goal potassium level of 4.0, magnesium level 2.0 (3) Influenza A Current Visit: Yes Status: Acute Management per primary team. (4) C. difficile diarrhea Current Visit: Yes Status: Acute Management per primary team. (5) Hypertension Current Visit: Yes Status: Acute Blood pressure elevated. Resume home lisinopril. Avoid beta blockers due to significant bradycardia. (6) Hyperlipidemia Current Visit: No Status: Chronic Continue statin. (7) Multiple sclerosis Current Visit: No Status: Chronic Management per primary team. (8) Diabetes mellitus, type 2 Current Visit: Yes Status: Chronic Management per primary team. Discussion w patient/family: The assessment and plan as outlined above was discussed with the patient and/or family members who expressed understanding and agreement. All questions were answered. Thank you for involving us in the care of your patient. Please call with any questions. History of Present Illness Consult date: 08/31/18 Requesting physician: Jihan Villasenor Consult reason: 3.8 pause, bradycardia Chief complaint: Headache History of present illness: Ms. Johnson is a 58 year old female with a past medical history of multiple sclerosis, hypertension, hyperlipidemia, DM type 2, and tobacco dependence who presented complaining of ongoing headache, diarrhea, fatigue, and recent significant weight loss. Patient denies associated fever, chills, chest pain, shortness of breath, nausea, vomiting, or pedal edema. Patient was found to be Influenza A positive as well as C. difficile positive. Lab work on arrival revealed hypokalemia with potassium level 2.4 and normal magnesium level. Telemetry revealed significant sinus bradycardia with heart rate in the 40s with a 3.8 second sinus pause. The patient was completely asymptomatic and blood pressure remains stable. Dopamine was ordered to bedside transcutaneous pacer pads were placed. Patient was treated with Atropine x1 this morning and transferred to the ICU step down unit. Cardiology was consulted for further evaluation. Past Med Surg Social Fam HX - Past Medical History Medical history: diabetes, hyperlipidemia Additional medical history: MS Psychiatric history: depression - Past Surgical History Surgical History: hysterectomy Additional surgical history: bilateral carpal tunnel, right elbow sx, - Social History Smoking Status: Current every day smoker Smokeless Tobacco Status: No Alcohol use: none Drug use: none - Family History Maternal Hx Family Cancer: Yes Father Living Status: Hx Family Cardiac Disorders: Yes Mother Living Status: Hx Family Cardiac Disorders: Yes Medications and Allergies Albuterol Sulfate [Proair Respiclick] 90 mcg IH Q6H PRN 03/07/15 [History] Aspirin 81 mg PO DAILY 03/07/15 [History] Clopidogrel [Plavix] 75 mg PO DAILY 03/07/15 [History] Donepezil HCl [Donepezil HCl Odt] 10 mg PO DAILY 03/07/15 [History] Ferrous Sulfate 325 mg PO BID 03/07/15 [History] Gabapentin [Neurontin] 800 mg PO TID 03/07/15 [History] Levomefolate/B6/B12/Algal Oil [Foltanx Rf Capsule] 1 each PO AD 03/07/15 [History] Lisinopril [Zestril] 2.5 mg PO DAILY 03/07/15 [History] Metformin [Glucophage] 500 mg PO DAILY 03/07/15 [History] Nabumetone [Relafen] 500 mg PO BID 03/07/15 [History] Ondansetron ODT [Zofran ODT] 4 mg SL BID PRN 03/07/15 [History] Quetiapine Fumarate [Seroquel] 50 mg PO HS 03/07/15 [History] Raloxifene [Evista] 60 mg PO DAILY 03/07/15 [History] Ranitidine HCl [Zantac] 150 mg PO BID 03/07/15 [History] Topiramate [Topamax] 100 mg PO HS 03/07/15 [History] Teriflunomide [Aubagio] 7 mg PO DAILY 03/11/18 [History] Atorvastatin [Lipitor] 40 mg PO HS 08/30/18 [History] Bifidobacterium Infantis [Align] 4 mg PO DAILY 08/30/18 [History] Calcium Carbonate/Vitamin D3 [Calcium 500 + Vit D Caplet] 1 each PO BID 08/30/18 [History] Cetirizine HCl [24Hour Allergy] 10 mg PO DAILY 08/30/18 [History] Divalproex (12 HR) [Depakote (12 HR)] 500 mg PO BID 08/30/18 [History] Escitalopram [Lexapro] 10 mg PO DAILY 08/30/18 [History] Fluticasone Propionate Nasal [Flonase] 100 mcg NS DAILY PRN 08/30/18 [History] Furosemide [Lasix] 20 mg PO DAILY 08/30/18 [History] Lipase/Protease/Amylase [Zenpep Dr 40,000 Units Capsule] 1 each PO TIDWM 08/30/18 [History] Vit #108/Iron/FA [ One Tablet] 1 each PO DAILY 08/30/18 [History] Simethicone [Gas-X] 80 mg PO TID 08/30/18 [History] Teriflunomide [Aubagio] 7 mg PO DAILY 08/30/18 [History] OxyCODONE/APAP 5/325 [Percocet 5/325 MG] 1 each PO Q8HR PRN 08/31/18 [History] Allergy/AdvReac Type Severity Reaction Status Date / Time No Known Allergies Allergy Verified 06/29/18 14:37 All Systems Review: The remainder of the systems were reviewed and are negative - Constitutional Constitutional: fatigue, headache(s), lethargy, weakness, weight loss, no chills, no fever(s) - Cardiovascular Cardiovascular: no chest pain at rest, no chest pain with exertion, no dyspnea at rest, no dyspnea on exertion, no palpitations - Respiratory Respiratory: no cough, no dyspnea - Gastrointestinal Gastrointestinal: diarrhea, no abdominal pain, no nausea - Genitourinary Genitourinary: no dysuria, no hematuria - Musculoskeletal Musculoskeletal: myalgias, no back pain, no muscle weakness - Integumentary Integumentary: no erythema, no rash - Neurological Neurological: no dizziness, no focal weakness, no numbness, no tingling - Psychiatric Psychiatric: no anxiety, no depression - Hematological/Lymphatic Hematologic/Lymphatic: no easy bleeding, no easy bruising Physical Examination Vital Signs, Last 4 Hours Temp Pulse Resp BP Pulse Ox 09/01/18 07:46 95 09/01/18 07:29 98.4 F 46 17 177/98 95 09/01/18 05:30 50 133/96 09/01/18 04:30 52 159/86 General: Other (Lethargic, slow response to questions) HEENT: Atraumatic, Normocephaly Neck: No JVD Cardiac: Normal S1 and S2 (Bradycardic) Lungs: Normal Breath Sounds, No Wheeze, Rales, Rhonchi Neuro: Alert and responsive, No focal deficits noted Abdomen: Soft, Non-Tender Skin: No rashes noted on visualized skin Musculoskeletal: No Chest Wall Tenderness Extremities: No Clubbing, No Cyanosis, No Edema Results 09/01/18 03:10 09/01/18 03:10 Lab Results 09/01/18 09/01/18 03:10 03:10 WBC 4.2 L Hgb 9.5 L Hct 29.3 L Plt Count 177 Sodium 144 Potassium 2.8 L Chloride 115 H Carbon Dioxide 20 L BUN 7 Creatinine 0.48 L Glucose 77 Calcium 8.3 L Magnesium 2.0 - Imaging and Cardiology Chest Xray: report reviewed - EKG Interpretation EKG results cardiology: personally reviewed (Sinus bradycardia, no ST segment elevations or depression) Consult Discharge Plan - Plan Referrals: Braulio Mendoza, [Non-Partnered Physician] - (patient to call the office to make appointment when patient is discharged) <Yves Cardona - Last Filed: 09/01/18 15:38> Date of Encounter: 09/01/18 - Attending Attestation I examined this patient and my medical decision-making was reviewed with the Resident Physician. I agree with the documented findings, disposition and treatment plan as described except to the extent set forth below. CC: diarrhea, abdominal pain. Pt admitted with intractable diarrhea, abdominal pain, found to have C diff, on IV rehydration and antibiotics. She is on tele, found to have persistent bradycardia with heart rates consistently in the high 40s. She has no previous cardiac history, no previous history of symptomatic bradycardia. She notes occasonal dizziness with change in position from sitting to standing, lasts seconds, resolves spontaneously. Tele recording last pm documented 3.8 second sinus pause, pt at rest, asymptomatic. PMH: reviewed ROS: reviewed PE: agree with exam as documented LABS and Xrays reviewed, IMP: 1. Bradycardia, unclear etiology, metabolic studies positive for hypokalemia, with significant apparently asymptomatic 3.8 second pause, will order stress imaging to evaluated for ischemic substrate, consult EPS. 2. C diff colitis: primary team managing. Assessment and Plan Discussion w patient/family: The assessment and plan as outlined above was discussed with the patient and/or family members who expressed understanding and agreement. All questions were answered. Thank you for involving us in the care of your patient. Please call with any questions. History of Present Illness History of present illness: Ms. Johnson is a 58 year old female All Systems Review: The remainder of the systems were reviewed and are negative Results 09/01/18 03:10 09/01/18 13:57 Lab Results 09/01/18 09/01/18 09/01/18 03:10 03:10 13:57 WBC 4.2 L Hgb 9.5 L Hct 29.3 L Plt Count 177 Sodium 144 Potassium 2.8 L 4.3 D Chloride 115 H Carbon Dioxide 20 L BUN 7 Creatinine 0.48 L Glucose 77 Calcium 8.3 L Magnesium 2.0
[2018-09-01] MEDS: Vancomycin Oral Soln 125 MG/2.5 ML UDC PO SCH ×4 (09:53→21:09)
[2018-09-01] MEDS: Prenatal Vit/FA 1 EACH TABLET PO SCH (10:01)
--- NOTE | 2018-09-01 11:47 | Gastroenterology Consult Note ---
<Robert Palacios Lexi - Last Filed: 09/01/18 11:44> Date of Encounter: 09/01/18 Time of Encounter: 10:25 - Assessment and plan (1) C. difficile diarrhea Current Visit: Yes Status: Acute Assessment and plan: C diff positive. Continue PO Vanco to complete 14 day course. Once Cdiff resolved, will plan for colonoscopy. Follow up in GI office with Dr. Shah in 4-6 weeks. Patient also taking Zenpep for unclear reason, unsure who started the medication. Patient saw Dr. Shah 03/2018 and was not taking Zenpep. Check pancreatic elastase. - Time Spent With Patient Total time spent is greater than 50% in coordination of care (as documented) at patient's floor/unit and/or counseling patient: GI History of Present Illness - Data of Consult Patient: known to practice within the last 3 years Consult date: 09/01/18 Requesting Physician: Hao Moreland MD - Consult Narrative Reason for consult: C diff History of present illness: Ms. Johnson is a 58 year old female with PMHx of DM, HLD, Mares's esoph brionna, multiple sclerosis who presented to the ED with c/o headache, diarrhea, fatigue. We were consulted to evaluate her diarrhea. Patient was found to be Influenza A positive as well as C. difficile positive. She denies fever, chills, shortness of breath, nausea, vomiting, melena, or hematochezia. She reports having 7-10 episodes of diarrhea daily for the past year. Patient hypokalemic on admission. Procedures: EGD 08/06/2018 Dr. Shah: Mild Schatzki ring which was dilated, gastritis, Mares's esophagus, repeat in 3 years. NSAIDs: ASA Anticoagulation: Plavix Past Med Surg Social Fam HX - Past Medical History Medical history: diabetes, hyperlipidemia Additional medical history: MS Psychiatric history: depression - Past Surgical History Surgical History: hysterectomy Additional surgical history: bilateral carpal tunnel, right elbow sx, - Social History Smoking Status: Current every day smoker Smokeless Tobacco Status: No Alcohol use: none Drug use: none - Family History Father Living Status: Hx Family Cardiac Disorders: Yes Maternal Hx Family Cancer: Yes Mother Living Status: Hx Family Cardiac Disorders: Yes - Gastrointestinal Gastrointestinal: Present: as per HPI - Constitutional Constitutional: as per HPI - EENT Eyes: as per HPI Ears: Present: as per HPI Nose, mouth and throat: Present: as per HPI - Cardiovascular Cardiovascular ROS: Present: as per HPI - Respiratory Respiratory IM: Present: as per HPI - Genitourinary Genitourinary: Absent: change in color, Urinary frequency - Neurological ROS Neurological GI: Present: as per HPI - Hematologic/Lymphatic Hematologic/Lymphatic pediatric: Present: as per HPI - Musculoskeletal Musculoskeletal ROS GI: Present: as per HPI - Integumentary Integumentary GI: Present: as per HPI - Psychiatric ROS Psychiatric GI: Present: as per HPI - Endocrine Endocrine IM: Present: as per HPI - Constitutional Vitals: Temp Pulse Resp BP Pulse Ox 98.4 F 66 18 158/78 97 09/01/18 11:18 09/01/18 11:18 09/01/18 11:18 09/01/18 11:18 09/01/18 11:18 General appearance: Present: cooperative, A&O X 3, no acute distress, answers questions appropriately - Head Head exam: Present: atraumatic, normocephalic - Eye Eye exam: Present: normal appearance, sclera anicteric - ENT ENT exam: Present: mucous membranes moist - Neck Neck exam general surgery: Present: normal inspection, trachea midline - Respiratory Respiratory exam: Present: CTAB. Absent: rales, rhonchi - Cardiovascular Cardiovascular exam: Present: RRR, +S1, +S2 - GI/Abdominal GI/Abdominal exam: Present: soft, no peritoneal signs. Absent: distended, firm, guarding, tenderness - Rectal Rectal exam: Present: deferred - Extremities Exam Extremities exam: Present: warm - Neurological Exam Neurological exam: Present: no focal deficits - Psychiatric Psychiatric exam: Present: normal affect, normal mood - Skin Skin exam: Present: dry, intact, normal color, warm Results - Labs CBC & Chem 7: 09/01/18 03:10 09/01/18 03:10 Labs: Last Result Calcium 8.3 mg/dL (8.6-10.3) L 09/01/18 03:10 Iron 28 mcg/dL (50-170) L 08/31/18 04:40 % Saturation 13 % (15-50) L 08/31/18 04:40 Transferrin 155 mg/dL (203-362) L 08/31/18 04:40 Troponin I < 0.03 ng/mL (< 0.04) 08/30/18 11:35 Triglycerides 164 mg/dL (< 150) H 08/31/18 04:40 Entire Visit Hgb 9.5 g/dL (11.5-15.4) L 09/01/18 03:10 Hct 29.3 % (35.3-44.9) L 09/01/18 03:10 Total Bilirubin 0.4 mg/dL (0.3-1.0) 08/31/18 04:40 AST 21 Units/L (13-39) 08/31/18 04:40 ALT 35 Units/L (7-52) 08/31/18 04:40 Amylase 35 Units/L (29-103) 08/30/18 17:14 Lipase 14 Units/L (11-82) 08/30/18 17:14 Consult Discharge Plan - Plan Referrals: Braulio Mendoza, [Non-Partnered Physician] - (patient to call the office to make appointment when patient is discharged) <Roque Phillip - Last Filed: 09/01/18 17:42> Date of Encounter: 09/01/18 Time of Encounter: 13:00 - Time Spent With Patient Total time spent is greater than 50% in coordination of care (as documented) at patient's floor/unit and/or counseling patient: GI History of Present Illness - Data of Consult Requesting Physician: Hao Moreland MD - Consult Narrative History of present illness: Ms. Johnson is a 58 year old female - Constitutional Vitals: Temp Pulse Resp BP Pulse Ox 98.4 F 58 18 145/81 97 09/01/18 11:18 09/01/18 16:45 09/01/18 16:45 09/01/18 16:45 09/01/18 11:18 Results - Labs CBC & Chem 7: 09/01/18 03:10 09/01/18 13:57 Labs: Last Result Calcium 8.3 mg/dL (8.6-10.3) L 09/01/18 03:10 Iron 28 mcg/dL (50-170) L 08/31/18 04:40 % Saturation 13 % (15-50) L 08/31/18 04:40 Transferrin 155 mg/dL (203-362) L 08/31/18 04:40 Troponin I < 0.03 ng/mL (< 0.04) 08/30/18 11:35 Triglycerides 164 mg/dL (< 150) H 08/31/18 04:40 Entire Visit Hgb 9.5 g/dL (11.5-15.4) L 09/01/18 03:10 Hct 29.3 % (35.3-44.9) L 09/01/18 03:10 Total Bilirubin 0.4 mg/dL (0.3-1.0) 08/31/18 04:40 AST 21 Units/L (13-39) 08/31/18 04:40 ALT 35 Units/L (7-52) 08/31/18 04:40 Amylase 35 Units/L (29-103) 08/30/18 17:14 Lipase 14 Units/L (11-82) 08/30/18 17:14 - Impressions Impressions Echocardiogram 09/01/18 11:46 Impressions: LVEF 60%. Normal LV chamber size, wall thickness and function. Normal left ventricular diastolic function. Normal right ventricular structure and function. Mildly dilated left atrium. Mild tricuspid regurgitation. No evidence of pulmonary hypertension. Left Ventricular Wall Motion: Rest Echo Findings All wall segments showed normal motion. Findings: Study Quality * Technically adequate exam. ECG Findings * Sinus bradycardia. Left Ventricle * LVEF 60%. * Normal LV chamber size, wall thickness and function. * Normal left ventricular diastolic function. Right Ventricle * Normal right ventricular structure and function. Left Atrium * Mildly dilated left atrium. Right Atrium * Normal right atrial size. Interatrial Septum * No evidence of PFO by color Doppler. Aortic Valve * Trileaflet aortic valve. * Normal aortic valve structure. * No aortic regurgitation. * No aortic stenosis. Mitral Valve * Normal mitral valve structure. * No mitral regurgitation. * No mitral stenosis. Tricuspid Valve * Mild tricuspid regurgitation. * Normal tricuspid valve structure. * No tricuspid stenosis. * No evidence of pulmonary hypertension. Pulmonic Valve * No pulmonic regurgitation. Aorta * Normally sized aortic root. Pericardium * The pericardium appears normal. IVC * Normal IVC dimensions and inspiratory collapse. Pulmonary Artery * Normal visualized portions of the main pulmonary artery. - Attending Attestation I have personally performed a face to face evaluation on this patient. I have reviewed and agree with the care plan. History and Exam by me shows: Patient seen. Per patient her diarrhea is doing better. Examination alert and awake not in the acute distress. Assessment: Patient with C. difficile diarrhea and also anemia. Recommendation continue by mouth vancomycin. Follow-up with GI as an outpatient for further workup of her anemia as an outpatient once the acute C. difficile resolved
--- NOTE | 2018-09-01 13:06 | Internal Med Progress Note ---
Hospitalist Progress Note - Encounter Date of Encounter: 09/01/18 Time of Encounter: 08:00 - Subjective Interval History: Patient was seen and examined at bedside. I discussed the plan of care with her and she understands. She is to remain nothing by mouth until she is evaluated by the gastroenterology team. She continues to have multiple episodes of diarrhea last one was just before I examined her at around 739 morning. She denies melena or hematochezia. She is inquiring about food Currently she denies any abdominal pain, chest pain, SOB had no acute events overnight. As noted at bedside all questions answered. - Exam Vitals: Temp Pulse Resp BP Pulse Ox 98.4 F 66 18 158/78 97 09/01/18 11:18 09/01/18 11:18 09/01/18 11:18 09/01/18 11:18 09/01/18 11:18 Exam: General: Patient is alert, oriented, cachectic Head: atraumatic, normocephalic, Eye: normal appearance, PERRL, no scleral icterus, no conjunctival injection ENT: mucous membranes dry, normal external ear exam Neck: normal inspection, trachea midline, full ROM, no carotid bruits Chest: normal inspection, symmetric chest rise Respiratory: Good respiratory effort. Bilateral breath sounds are clear without wheezing, crackles, or rhonchi. Cardiovascular:bradycardic s1 and s2 No clicks, rubs, gallops, or murmors. Abdomen: Bowel sounds present normoactive x-4 quadrants. Abdomen is soft, nondistended. no Epigastric tenderness. No guarding or rebound. No organomegaly noted, scaphoid musculoskeletal: Spontaneously moving all extremities. no edema, no calf tenderness cachectic Skin: warm, dry, intact. Neuro: Alert and oriented x4.no focal deficit Psych: Patient's affect is normal - Assessment and Plan (1) Sinus bradycardia Current Visit: Yes Status: Acute Assessment and Plan: due to unknown etiology . has pauses longest one was 3.8 seconds on 08/31 is on Aricept- was held since admission hypokalemia- treated continue with tele monitoring TSH 0.554 cortisol level 4.7 taken at 17:14 cardiology consulted will follow recs atropine at bedside dopamine at bedside transcutanoues pacing (2) Sinus pause Current Visit: Yes Status: Acute Assessment and Plan: was seen on tele on 08/31 multiple episodes longest one was 3.8 seconds cardiology consulted management as above (3) C. difficile diarrhea Current Visit: Yes Status: Acute Assessment and Plan: started on oral vancomycin to complete a 14 day course Gi recs appreciated rest of the management as above (4) Influenza A Current Visit: Yes Status: Acute Assessment and Plan: started on tamiflu continue with supportive measures CT with Scattered consolidative and nodular opacities in the lung bases compatible with inflammatory process or infection. Chest CT follow-up in 3 months is recommended to ensure resolution of the nodular opacities. (5) Hypokalemia Current Visit: Yes Status: Acute Assessment and Plan: most likely secondary to chronic diarrhea replaced - follow potassium at 1pm magensium WNL continue to monitor electrolytes and replace as needed urine potassium 9.7 (6) Multiple sclerosis Current Visit: No Status: Chronic Assessment and Plan: continue home medications reports that she is in between neurologist and is supposed to be seen by neurologist at [facility] she denies loss of function of her extremities, no loss of bladder control, no vision changes or vision loss MRI- A few nonspecific tiny foci of increased signal are noted in the white matter bilaterally. These are indeterminate may represent small vessel ischemic change. Given history,could represent sequela multiple sclerosis. There is no acute infarct. There is no finding to suggest plaque activity. LFTs WNL discussed case with Dr. Duvall with neurology who recommended to continue home medications as she is not in acute exacerbation. he recommended to continue to treat the infections (influenza and c.dif) (7) Hypertension Current Visit: Yes Status: Acute Assessment and Plan: continue with lisinopril (8) Hyperlipidemia Current Visit: No Status: Chronic Assessment and Plan: continue with home statins (9) Cachectic Current Visit: Yes Status: Acute Assessment and Plan: nutrition consulted reports losing significant amount of weight BMI is 17 continue with IV hydration prealbumin 15.9 (10) Declining functional status Current Visit: Yes Status: Acute Assessment and Plan: CM/ SW and Pt/Ot consulted (11) DVT prophylaxis Current Visit: Yes Status: Acute - Time Spent with Patient Total time spent is greater than 50% in coordination of care (as documented) at patient's floor/unit and/or counseling patient: Internal Medicine: Result - Labs CBC & Chem 7: 09/01/18 03:10 09/01/18 03:10 Labs: Short CBC 09/01/18 Range/Units 03:10 WBC 4.2 L (4.3-11.1) K/mcL Hgb 9.5 L (11.5-15.4) g/dL Hct 29.3 L (35.3-44.9) % Plt Count 177 (140-400) K/mcL BMP 09/01/18 03:10 Sodium 144 Potassium 2.8 L Chloride 115 H Carbon Dioxide 20 L BUN 7 Creatinine 0.48 L Glucose 77 Calcium 8.3 L Consult Discharge Plan - Plan Referrals: Braulio Mendoza, [Non-Partnered Physician] - (patient to call the office to make appointment when patient is discharged) (7) Hypertension Qualifiers: Hypertension type: essential hypertension Qualified Code(s): I10 - Essential (primary) hypertension (8) Hyperlipidemia Qualifiers: Hyperlipidemia type: unspecified Qualified Code(s): E78.5 - Hyperlipidemia, unspecified
[2018-09-01 14:30] LABS: VBG Ionized Calcium 1.15 mmol/L (1.15-1.35)
[2018-09-01] MEDS: Nicotine 14 MG PATCH.TD24 TD SCH (16:39)
[2018-09-01] MEDS: [UNRECOGNIZED DRUG - OTHER] PO SCH (16:39)
[2018-09-01] MEDS: Topiramate 100 MG TABLET PO SCH (21:08)
[2018-09-02] MEDS: *HR* Heparin 5,000 UNIT/ML VIAL SQ SCH ×3 (05:20→21:20)
[2018-09-02] MEDS ORDERED: Regadenoson 0.4 MG/5 ML SYRINGE IVP ONE (06:17)
[2018-09-02 06:32] LABS: Hematocrit 29.7 % (35.3-44.9); Hemoglobin 9.7 g/dL (11.5-15.4); Mean Corpuscular HGB Conc 32.7 g/dL (31.6-35.5); Mean Corpuscular Hemoglobin 30.6 pg (28.0-33.3); Mean Corpuscular Volume 93.7 fL (83.0-100.0); Mean Platelet Volume 10.5 fL (9.4-12.4); Platelet Count 188 K/mcL (140-400); Red Blood Count 3.17 M/mcL (3.82-4.97); Red Cell Distribution Width 14.3 % (11.5-14.5)
[2018-09-02 06:55] LABS: BUN/Creatinine Ratio 14 (6-26); Blood Urea Nitrogen 7 mg/dL (6-20); Calcium 8.6 mg/dL (8.6-10.3); Carbon Dioxide 21 mEq/L (23-29); Chloride 117 mEq/L (98-107); Glucose 96 mg/dL (70-105); Osmolality,Calculated 296 (280-300); Potassium 3.9 mEq/L (3.5-5.1); Sodium 144 mEq/L (136-145); Troponin I < 0.03 ng/mL (< 0.04); eGFR For Non-African Americans > 60 (> 60)
[2018-09-02] MEDS: Famotidine 20 MG TABLET PO SCH ×2 (07:36→17:06)
[2018-09-02 07:43] LABS: INR 1.2; Prothrombin Time 13.6 Seconds (9.4-12.1)
--- NOTE | 2018-09-02 07:52 | Internal Med Progress Note ---
Hospitalist Progress Note - Encounter Date of Encounter: 09/02/18 Time of Encounter: 07:52 - Subjective Interval History: Pt today feeling better than previous. Still having diarrhea, says 5 episodes today. Unable to get up and to bathroom prior to stooling herself. No issues with stress testing today. Appetite is good. No abd pain. No SOB or CP or palp itations or dizziness. - Exam Vitals: Temp Pulse Resp BP Pulse Ox 98.0 F 50 20 151/86 94 09/02/18 04:54 09/02/18 04:54 09/02/18 04:54 09/02/18 04:54 09/02/18 04:54 Exam: General: NAD, good eye contact, chronically ill appearing but nontoxic Thoracic: Normal breath sounds b/l, no wheezing or crackles Cardio: Normal S1 and S2, regular rate and rhythm, no murmurs Abdomen: Soft, nontender Extremities: Warm, well perfused. DP pulses 2+ b/l. No edema. Neuro: Awake, fully oriented. Speech fluent - Summary of Assessment and Plan Summary of Assessment and Plan: C diff diarrhea: pt does have chronic diarrhea, tested positive here - GI following, appreciate rec's - vanc 125 qid for additional 2 weeks, last dose 09/16 Influenza A: tamiflu 75 bid, last dose 09/05 UTI: completed 3 days omnicef Sinus bradycardia with pause: 4 second pause, per Cardio EP Dr Guillermo should focus on CPAP for ANNABEL, no additional rec's and no need for pacemaker at this time - did not require dopamine or transcutaneous pacing MS: pending [facility] neuro eval, treat infections as above, no concern for exacerbation at this time ANNABEL: CPAP tonight, is noncompliant at home 2/2 broken mask too expensive to replace HTN: home lisinopril HLD: home statin Cachexia: mild protein calorie malnutrition Deconditioning: PT/OT consults PPx: sqh FEN: regular, no MIVF Lines: PIV Consults: ID, Cardio Code: Full Dispo: patient requires inpatient eval and management at this time. Anticipate 2-3 days. Will be homegoing Internal Medicine: Result - Labs CBC & Chem 7: 09/02/18 06:15 09/02/18 06:15 Labs: Short CBC 09/02/18 Range/Units 06:15 WBC 4.4 (4.3-11.1) K/mcL Hgb 9.7 L (11.5-15.4) g/dL Hct 29.7 L (35.3-44.9) % Plt Count 188 (140-400) K/mcL [facility] 09/01/18 09/02/18 13:57 06:15 Sodium 144 Potassium 4.3 D 3.9 Chloride 117 H Carbon Dioxide 21 L BUN 7 Creatinine 0.50 L Glucose 96 Calcium 8.6 Cardiac Enzymes 09/02/18 Range/Units 06:15 Troponin I < 0.03 (< 0.04) ng/mL - ABG Interpretation ABG results: PT/INR, D-dimer PT 13.6 Seconds (9.4-12.1) H 09/02/18 06:15 - Impressions Impressions Echocardiogram 09/01/18 11:46 Impressions: LVEF 60%. Normal LV chamber size, wall thickness and function. Normal left ventricular diastolic function. Normal right ventricular structure and function. Mildly dilated left atrium. Mild tricuspid regurgitation. No evidence of pulmonary hypertension. Left Ventricular Wall Motion: Rest Echo Findings All wall segments showed normal motion. Findings: Study Quality * Technically adequate exam. ECG Findings * Sinus bradycardia. Left Ventricle * LVEF 60%. * Normal LV chamber size, wall thickness and function. * Normal left ventricular diastolic function. Right Ventricle * Normal right ventricular structure and function. Left Atrium * Mildly dilated left atrium. Right Atrium * Normal right atrial size. Interatrial Septum * No evidence of PFO by color Doppler. Aortic Valve * Trileaflet aortic valve. * Normal aortic valve structure. * No aortic regurgitation. * No aortic stenosis. Mitral Valve * Normal mitral valve structure. * No mitral regurgitation. * No mitral stenosis. Tricuspid Valve * Mild tricuspid regurgitation. * Normal tricuspid valve structure. * No tricuspid stenosis. * No evidence of pulmonary hypertension. Pulmonic Valve * No pulmonic regurgitation. Aorta * Normally sized aortic root. Pericardium * The pericardium appears normal. IVC * Normal IVC dimensions and inspiratory collapse. Pulmonary Artery * Normal visualized portions of the main pulmonary artery. Consult Discharge Plan - Plan Referrals: Yves Cardona DO [Partnered Physician] - (Office to call patient with follow up appointment) Braulio Mendoza DO [Non-Partnered Physician] - (patient to call the office to make appointment when patient is discharged this is a walk in clinic only )
[2018-09-02] MEDS: *HR* OxyCODONE/APAP 5/325 TABLET PO PRN ×2 (07:56→21:17)
[2018-09-02] MEDS: Vancomycin Oral Soln 125 MG/2.5 ML UDC PO SCH ×4 (09:00→21:19)
--- NOTE | 2018-09-02 10:11 | Electrophysiology Consult Note ---
<Jacqueline Rivera - Last Filed: 09/02/18 13:07> Date of Encounter: 09/02/18 Time of Encounter: 09:00 Assessment and Plan (1) Sinus pause Status: Acute Per EP: -Nocturnal sinus pauses noted, longest 5.6 seconds. -Reports ANNABEL and non-compliance with CPAP. -TTE with LVEF 60%, mildly dilated left atrium, mild TR, no wall motion abnormalities noted. -Stress negative for ischemia or infarct. -Discussed and reviewed with Dr.John Guillermo, suspect pauses related to sleep apnea, recommend treatment for ANNABEL. -Continue telemetry. -Will continue to monitor. (2) Sinus bradycardia Status: Acute Per EP: -Sinus bradycardia noted per ECG and telemetry. -Patient admitted with influenza, c.diff. -Average HR previous 24 hours noted to be 51, SB -Reports some mild dizziness with position change, ?orthostatic. -BP stable. -Electrolyte abnormalities noted on admission, have been corrected. -No urgent indication for pacemaker at this time. -Continue telemetry. -Will continue to monitor. Discussion w patient/family: The assessment and plan as outlined above was discussed with the patient who expressed understanding and agreement. All questions were answered. Thank you for involving us in the care of your patient. Please call with any questions. Discussed and reviewed with Dr.John Guillermo. History of Present Illness Consult date: 09/01/18 Requesting physician: Christiano Nunez Consult reason: bradycardia, pause Chief complaint: diarrhea History of present illness: Ms. Johnson is a 58 year old female with a relevant past medical history of MS, DM, HLD, depression, ANNABEL non-compliant with CPAP, tobacco abuse, recent unintentional weight loss, who presented to [facility] with complaints of intractable diarrhea. Patient is currently being treated for c.diff and influenza. EP consulted for sinus bradycardia and nocturnal pauses. Patient reports some mild dizziness with position change. Denies dizziness while sitting. Denies syncope, near syncope. Reports she has known sleep apnea, however states her mask at home has been broken for a while so she does not use. States has not been on O2, CPAP while in hospital. Of note, patient seen and examined during stress test in stress lab. Past Med Surg Social Fam HX - Past Medical History Attestation: Yes The following information was validated with the patient. Source: patient, old records reviewed Medical history: diabetes, hyperlipidemia Additional medical history: MS Psychiatric history: depression - Past Surgical History Surgical History: hysterectomy Additional surgical history: bilateral carpal tunnel, right elbow sx, - Social History Smoking Status: Current every day smoker Smokeless Tobacco Status: No Alcohol use: none Drug use: none - Family History Father Living Status: Hx Family Cardiac Disorders: Yes Maternal Hx Family Cancer: Yes Mother Living Status: Hx Family Cardiac Disorders: Yes Medications and Allergies RX: Albuterol Sulfate [Proair Respiclick] 90 mcg IH Q6H PRN 03/07/15 [History] RX: Aspirin 81 mg PO DAILY 03/07/15 [History] RX: Clopidogrel [Plavix] 75 mg PO DAILY 03/07/15 [History] RX: Donepezil HCl [Donepezil HCl Odt] 10 mg PO DAILY 03/07/15 [History] RX: Ferrous Sulfate 325 mg PO BID 03/07/15 [History] RX: Gabapentin [Neurontin] 800 mg PO TID 03/07/15 [History] RX: Levomefolate/B6/B12/Algal Oil [Foltanx Rf Capsule] 1 each PO AD 03/07/15 [History] RX: Lisinopril [Zestril] 2.5 mg PO DAILY 03/07/15 [History] RX: Metformin [Glucophage] 500 mg PO DAILY 03/07/15 [History] RX: Nabumetone [Relafen] 500 mg PO BID 03/07/15 [History] RX: Ondansetron ODT [Zofran ODT] 4 mg SL BID PRN 03/07/15 [History] RX: Quetiapine Fumarate [Seroquel] 50 mg PO HS 03/07/15 [History] RX: Raloxifene [Evista] 60 mg PO DAILY 03/07/15 [History] RX: Ranitidine HCl [Zantac] 150 mg PO BID 03/07/15 [History] RX: Topiramate [Topamax] 100 mg PO HS 03/07/15 [History] RX: Teriflunomide [Aubagio] 7 mg PO DAILY 03/11/18 [History] RX: Atorvastatin [Lipitor] 40 mg PO HS 08/30/18 [History] RX: Bifidobacterium Infantis [Align] 4 mg PO DAILY 08/30/18 [History] RX: Calcium Carbonate/Vitamin D3 [Calcium 500 + Vit D Caplet] 1 each PO BID 08/30/18 [History] RX: Cetirizine HCl [24Hour Allergy] 10 mg PO DAILY 08/30/18 [History] RX: Divalproex (12 HR) [Depakote (12 HR)] 500 mg PO BID 08/30/18 [History] RX: Escitalopram [Lexapro] 10 mg PO DAILY 08/30/18 [History] RX: Fluticasone Propionate Nasal [Flonase] 100 mcg NS DAILY PRN 08/30/18 [History] RX: Furosemide [Lasix] 20 mg PO DAILY 08/30/18 [History] RX: Lipase/Protease/Amylase [Zenpep Dr 40,000 Unit Capsule] 1 each PO TIDWM 08/30/18 [History] RX: Vit #108/Iron/FA [ One Tablet] 1 each PO DAILY 08/30/18 [History] RX: Simethicone [Gas-X] 80 mg PO TID 08/30/18 [History] RX: OxyCODONE/APAP 5/325 [Percocet 5/325 MG] 1 each PO Q8HR PRN 08/31/18 [Hi story] RX: Oseltamivir [Tamiflu] 75 mg PO BID #4 capsule 09/03/18 [Rx] RX: Vancomycin Oral Soln [Firvanq] 125 mg PO QID #40 udc 09/03/18 [Rx] Allergy/AdvReac Type Severity Reaction Status Date / Time No Known Allergies Allergy Verified 06/29/18 14:37 All Systems Review: The remainder of the systems were reviewed and are negative - Cardiovascular Cardiovascular: as per HPI, lightheadedness - Gastrointestinal Gastrointestinal: diarrhea Physical Examination Vital Signs Temperature 97.4 F L 08/30/18 10:41 Pulse Rate 57 08/30/18 10:41 Respiratory Rate 16 08/30/18 10:41 Blood Pressure 95/62 08/30/18 10:41 O2 Sat by Pulse Oximetry 96 08/30/18 10:41 Temperature 98.0 F 09/02/18 04:54 Pulse Rate 50 09/02/18 04:54 Respiratory Rate 20 09/02/18 04:54 Blood Pressure 151/86 09/02/18 04:54 O2 Sat by Pulse Oximetry 94 09/02/18 04:54 Oxygen Delivery Oxygen Delivery Room Air General: Conversant, No Apparent Distress HEENT: Atraumatic, Normocephaly, Mucus Membranes Moist Neck: No JVD, Normal carotid pulses Cardiac: Reg Rate and Rhythm, Normal S1 and S2, No Murmur Lungs: Normal Breath Sounds, No Wheeze, Rales, Rhonchi Neuro: Alert and responsive, No focal deficits noted Abdomen: Soft, Non-Tender Skin: No rashes noted on visualized skin Musculoskeletal: No Chest Wall Tenderness Extremities: No Clubbing, No Cyanosis, No Edema, Normal Pulses Results 09/02/18 06:15 09/02/18 06:15 Lab Results Impressions Echocardiogram 09/01/18 11:46 Impressions: LVEF 60%. Normal LV chamber size, wall thickness and function. Normal left ventricular diastolic function. Normal right ventricular structure and function. Mildly dilated left atrium. Mild tricuspid regurgitation. No evidence of pulmonary hypertension. Left Ventricular Wall Motion: Rest Echo Findings All wall segments showed normal motion. Findings: Study Quality * Technically adequate exam. ECG Findings * Sinus bradycardia. Left Ventricle * LVEF 60%. * Normal LV chamber size, wall thickness and function. * Normal left ventricular diastolic function. Right Ventricle * Normal right ventricular structure and function. Left Atrium * Mildly dilated left atrium. Right Atrium * Normal right atrial size. Interatrial Septum * No evidence of PFO by color Doppler. Aortic Valve * Trileaflet aortic valve. * Normal aortic valve structure. * No aortic regurgitation. * No aortic stenosis. Mitral Valve * Normal mitral valve structure. * No mitral regurgitation. * No mitral stenosis. Tricuspid Valve * Mild tricuspid regurgitation. * Normal tricuspid valve structure. * No tricuspid stenosis. * No evidence of pulmonary hypertension. Pulmonic Valve * No pulmonic regurgitation. Aorta * Normally sized aortic root. Pericardium * The pericardium appears normal. IVC * Normal IVC dimensions and inspiratory collapse. Pulmonary Artery * Normal visualized portions of the main pulmonary artery. Active Medications Acetaminophen (Tylenol) 650 mg PO Q6HR PRN PRN Reason: Pain Stop: 03/01/19 16:22 Last Admin: 08/31/18 04:34 Dose: 650 mg Albuterol Sulfate (Albuterol Inhaler) 2 puff IH [id number] PRN PRN Reason: SHORTNESS OF BREATH/WHEEZING Stop: 03/01/19 16:00 Lipase/Protease/Amylase (Creon Dr 6,000 Units Capsule) 6 each PO TIDWM [facility] Stop: 03/01/19 17:01 Last Admin: 09/02/18 07:36 Dose: Not Given Aspirin (Aspirin) 81 mg PO DAILY [facility] Stop: 03/02/19 09:01 Last Admin: 09/01/18 08:02 Dose: 81 mg Atorvastatin Calcium (Lipitor) 40 mg PO HS [facility] Stop: 03/01/19 21:01 Last Admin: 09/01/18 21:08 Dose: 40 mg Atropine Sulfate (Atropine) 0.5 mg IVP ONCE PRN PRN Reason: Bradycardia Stop: 03/02/19 18:36 Last Admin: 09/01/18 02:36 Dose: 0.5 mg Calcium Carbonate (Tums) 500 mg PO BID [facility] Stop: 03/01/19 21:01 Last Admin: 09/01/18 21:09 Dose: 500 mg Clopidogrel Bisulfate (Plavix) 75 mg PO DAILY [facility] Stop: 03/02/19 09:01 Last Admin: 09/01/18 08:03 Dose: 75 mg Divalproex Sodium (Depakote (12 Hr)) 500 mg PO BID [facility] Stop: 03/01/19 21:01 Last Admin: 09/01/18 21:08 Dose: 500 mg Escitalopram Oxalate (Lexapro) 10 mg PO DAILY [facility] Stop: 03/02/19 09:01 Last Admin: 09/01/18 08:03 Dose: 10 mg Famotidine (Pepcid) 20 mg PO BIDAC [facility] Stop: 03/01/19 21:01 Last Admin: 09/02/18 07:36 Dose: Not Given Ferrous Sulfate (Ferrous Sulfate) 325 mg PO BID [facility] Stop: 03/01/19 21:01 Last Admin: 09/01/18 21:09 Dose: 325 mg Fluticasone Propionate (Flonase) 100 mcg NS DAILY PRN; Protocol PRN Reason: allergies Stop: 03/01/19 16:00 Gabapentin (Neurontin) 800 mg PO TID [facility] Stop: 03/01/19 21:01 Last Admin: 09/01/18 21:08 Dose: 800 mg Heparin Sodium (Porcine) (Heparin) 5,000 unit SQ Q8HCO [facility] Stop: 03/01/19 14:01 Last Admin: 09/02/18 05:20 Dose: 5,000 unit Lactated Ringer's (Lactated Ringers) 1,000 mls @ 100 mls/hr IVC .Q10H [facility] Stop: 03/02/19 14:01 Last Admin: 09/01/18 23:26 Dose: 100 mls/hr Dopamine HCl/Dextrose (Dopamine Premix 400mg/250ml) 400 mg in 250 mls @ 4.134 mls/hr IVC .Q24H [facility]; Protocol Stop: 03/02/19 18:16 Lactobacillus Acidophilus/Rhamnosus (Culturelle) 1 each PO DAILY [facility] Stop: 03/02/19 09:01 Last Admin: 09/01/18 08:03 Dose: 1 each Lisinopril (Zestril) 2.5 mg PO DAILY [facility]; Protocol Stop: 03/03/19 13:16 Last Admin: 09/01/18 14:39 Dose: 2.5 mg Loratadine (Claritin) 10 mg PO DAILY [facility] Stop: 03/02/19 09:01 Last Admin: 09/01/18 08:03 Dose: 10 mg Naloxone HCl (Narcan) 0.4 mg IVP Q2M PRN PRN Reason: SEE COMMENTS Stop: 03/01/19 13:28 Nicotine (Nicoderm) 14 mg TD DAILY [facility]; Protocol Stop: 03/03/19 10:01 Last Admin: 09/01/18 16:39 Dose: Not Given Ondansetron HCl (Zofran) 4 mg IVP ONCE PRN; Protocol PRN Reason: Nausea And Vomiting Stop: 03/03/19 08:12 Oseltamivir Phosphate (Tamiflu) 75 mg PO BID [facility] Stop: 09/04/18 21:01 Last Admin: 09/01/18 21:08 Dose: 75 mg Oxycodone/Acetaminophen (Percocet 5/325) 1 each PO Q8HR PRN PRN Reason: Severe Pain Stop: 03/02/19 11:26 Last Admin: 09/02/18 07:56 Dose: 1 each Pharmacy Profile Note (Patient Taking Own Medication) 1 each PO DAILY [facility] Stop: 03/01/19 16:16 Pharmacy Profile Note (Patient Taking Own Medication) 1 each PO 1200 [facility] Stop: 03/02/19 09:01 Prenat Multivit/Stafford/Iron/Folic Ac ( Vit/Fa) 1 each PO DAILY [facility] Stop: 03/02/19 09:01 Last Admin: 09/01/18 10:01 Dose: Not Given Quetiapine Fumarate (Seroquel) 50 mg PO HS [facility] Stop: 03/01/19 21:01 Last Admin: 09/01/18 21:08 Dose: 50 mg Raloxifene HCl (Evista) 60 mg PO DAILY [facility] Stop: 03/02/19 09:01 Last Admin: 09/01/18 08:00 Dose: 60 mg Topiramate (Topamax) 100 mg PO HS [facility] Stop: 03/01/19 21:01 Last Admin: 09/01/18 21:08 Dose: 100 mg Vancomycin HCl (Firvanq) 125 mg PO QID [facility] Stop: 03/02/19 09:01 Last Admin: 09/01/18 21:09 Dose: 125 mg Vitamin D (Vitamin D) 1,000 unit PO DAILY [facility] Stop: 03/02/19 09:01 Last Admin: 09/01/18 08:03 Dose: 1,000 unit Laboratory Tests 08/30/18 08/30/18 09/01/18 11:35 17:14 03:10 Hgb Potassium 2.4 L* Creatinine Magnesium 2.0 Troponin I < 0.03 TSH 0.554 09/02/18 09/02/18 06:15 06:15 Hgb 9.7 L Potassium 3.9 Creatinine 0.50 L Magnesium Troponin I < 0.03 TSH - Imaging and Cardiology Chest Xray: report reviewed Stress Test: pending Echo: report reviewed - EKG Interpretation EKG results cardiology: personally reviewed (ECG with SB, HR 55.), other (Telemetry reviewed with average HR previous 12 hours noted to be 51, SB. Multiple nocturnal sinus pauses noted, longest 5.6 seconds. PVCs and PACs noted.) Consult Discharge Plan - Plan Instructions: Chronic Obstructive Pulmonary Disease (DC), Clostridium Difficile Infection (DC) Referrals: Yves Cardona DO [Partnered Physician] - (Office to call patient with follow up appointment) Braulio Mendoza DO [Non-Partnered Physician] - (patient to call the office to make appointment when patient is discharged this is a walk in clinic only ) Prescriptions: RX: Oseltamivir [Tamiflu] 75 mg PO BID #4 capsule RX: Vancomycin Oral Soln [Firvanq] 125 mg PO QID #40 c <Domingo Guillermo - Last Filed: 09/04/18 11:02> Date of Encounter: 09/04/18 - Attending Attestation I have personally performed a face to face evaluation on this patient. I have reviewed and agree with the care plan. History and Exam by me shows: Bradycardia likely secondary to vagal response to GI illness and sleep apnea. No current indication for pacemaker. Assessment and Plan Discussion w patient/family: The assessment and plan as outlined above was discussed with the patient and/or family members who expressed understanding and agreement. All questions were answered. Thank you for involving us in the care of your patient. Please call with any questions. History of Present Illness History of present illness: Ms. Johnson is a 58 year old female All Systems Review: The remainder of the systems were reviewed and are negative Results 09/02/18 06:15 09/03/18 06:50
[2018-09-02] MEDS: Cefdinir 300 MG CAPSULE PO SCH (11:23)
[2018-09-02] MEDS: Aspirin 81 MG TAB.CHEW PO SCH (11:24)
[2018-09-02] MEDS: Cholecalciferol (D-3) 1,000 UNIT TABLET PO SCH (11:24)
[2018-09-02] MEDS: Loratadine 10 MG TABLET PO SCH (11:25)
[2018-09-02] MEDS: Gabapentin 400 MG CAPSULE PO SCH ×3 (11:26→21:17)
[2018-09-02] MEDS: Divalproex (12 HR) 500 MG TABLET PO SCH ×2 (11:26→21:18)
[2018-09-02] MEDS: Prenatal Vit/FA 1 EACH TABLET PO SCH (11:26)
[2018-09-02] MEDS: Teriflunomide [Aubagio] 14 MG PO SCH (11:26)
[2018-09-02] MEDS: FOLTANX PO SCH (11:27)
[2018-09-02] MEDS: Nicotine 14 MG PATCH.TD24 TD SCH (11:29)
[2018-09-02] MEDS: Lactobacillus 1 EACH CAP.SPRINK PO SCH (11:32)
[2018-09-02] MEDS: Ringers Solution, Lactated 1,000 ML IVC SCH ×2 (20:59→23:33)
[2018-09-02] MEDS: Desitin (Zinc Oxide) 56 GM TUBE TP SCH (21:03)
[2018-09-02] MEDS: Topiramate 100 MG TABLET PO SCH (21:17)
[2018-09-03] MEDS: *HR* Heparin 5,000 UNIT/ML VIAL SQ SCH (06:00)
[2018-09-03] MEDS: Ringers Solution, Lactated 1,000 ML IVC SCH (06:06)
[2018-09-03 07:49] LABS: BUN/Creatinine Ratio 18 (6-26); Blood Urea Nitrogen 9 mg/dL (6-20); Calcium 8.9 mg/dL (8.6-10.3); Carbon Dioxide 20 mEq/L (23-29); Chloride 115 mEq/L (98-107); Glucose 101 mg/dL (70-105); Magnesium 1.9 mg/dL (1.6-2.6); Osmolality,Calculated 295 (280-300); Potassium 3.6 mEq/L (3.5-5.1); Sodium 143 mEq/L (136-145); eGFR For Non-African Americans > 60 (> 60)
[2018-09-03] MEDS: Famotidine 20 MG TABLET PO SCH (08:23)
[2018-09-03] MEDS: Divalproex (12 HR) 500 MG TABLET PO SCH (08:23)
[2018-09-03] MEDS: Lactobacillus 1 EACH CAP.SPRINK PO SCH (08:24)
[2018-09-03] MEDS: Loratadine 10 MG TABLET PO SCH (08:24)
[2018-09-03] MEDS: Desitin (Zinc Oxide) 56 GM TUBE TP SCH (08:24)
[2018-09-03] MEDS: Vancomycin Oral Soln 125 MG/2.5 ML UDC PO SCH ×2 (08:24→11:48)
[2018-09-03] MEDS: Prenatal Vit/FA 1 EACH TABLET PO SCH (08:24)
[2018-09-03] MEDS: Cholecalciferol (D-3) 1,000 UNIT TABLET PO SCH (08:24)
[2018-09-03] MEDS: Aspirin 81 MG TAB.CHEW PO SCH (08:24)
[2018-09-03] MEDS: FOLTANX PO SCH (08:26)
--- NOTE | 2018-09-03 08:29 | Cardiology Progress Note ---
<Christiano Nunez - Last Filed: 09/03/18 15:17> Date of Encounter: 09/03/18 Time of Encounter: 08:25 Assessment and Plan (1) Sinus bradycardia Status: Acute Sinus bradycardia noted per ECG and telemetry. Echo revealed LVEF 60%, normal LV diastolic function, mildly dilated left atrium, and mild tricuspid regurgitation. Stress test was negative for ischemia, EF was 70%. Average HR previous 24 hours noted to be in the 50s. BP stable. Electrolyte abnormalities have been corrected. Continue ANNABEL treatment. No urgent indication for pacemaker at this time. Follow up as an outpatient. (2) Hypokalemia Status: Acute Potassium level 2.4 on arrival. Random cortisol level within normal limits. Continue potassium supplementation. Goal potassium level of 4.0, magnesium level 2.0 (3) C. difficile diarrhea Status: Acute Management per primary team. (4) Influenza A Status: Acute Management per primary team. (5) Hypertension Status: Chronic Blood pressure elevated. Continue home lisinopril. Avoid beta blockers due to significant bradycardia. Qualifiers: Hypertension type: essential hypertension Qualified Code(s): I10 - Essential (primary) hypertension (6) Hyperlipidemia Status: Chronic Continue statin. Qualifiers: Hyperlipidemia type: unspecified Qualified Code(s): E78.5 - Hyperlipidemia, unspecified (7) Multiple sclerosis Status: Chronic Management per primary team. (8) Diabetes mellitus, type 2 Status: Chronic Management per primary team. Qualifiers: Diabetes mellitus intermediate frame tender insulin use: without intermediate frame tender use Diabetes mellitus complication status: without complication Qualified Code(s): E11.9 - Type 2 diabetes mellitus without complications Discussion w patient/family: The assessment and plan as outlined above was discussed with the patient and/or family members who expressed understanding and agreement. All questions were answered. Thank you for involving us in the care of your patient. Please call with any questions. Subjective Principal diagnosis: Bradycardia Interval history: Patient seen and examined resting comfortably in bed. Patient was started on CPAP overnight with resolution of sinus pauses and fatigue. Stress test was completed yesterday. Objective Vital Signs, Last 4 Hours Temp Pulse Resp BP Pulse Ox 09/03/18 07:49 98.1 F 59 16 152/90 92 General: Conversant, No Apparent Distress HEENT: Atraumatic, Normocephaly Neck: No JVD, Normal carotid pulses Cardiac: Normal S1 and S2 (bradycardic) Lungs: Normal Breath Sounds, No Wheeze, Rales, Rhonchi Neuro: Alert and responsive, No focal deficits noted Abdomen: Soft, Non-Tender Skin: No rashes noted on visualized skin Musculoskeletal: No Chest Wall Tenderness Extremities: No Clubbing, No Cyanosis, No Edema, Normal Pulses Results 09/02/18 06:15 09/03/18 06:50 Lab Results 09/03/18 06:50 Sodium 143 Potassium 3.6 Chloride 115 H Carbon Dioxide 20 L BUN 9 Creatinine 0.51 L Glucose 101 Calcium 8.9 Magnesium 1.9 - Imaging and Cardiology Stress Test: report reviewed Echo: report reviewed Consult Discharge Plan - Plan Instructions: Chronic Obstructive Pulmonary Disease (DC), Clostridium Difficile Infection (DC) Referrals: Yves Cardona DO [Partnered Physician] - (Office to call patient with follow up appointment) Braulio Mendoza DO [Non-Partnered Physician] - (patient to call the office to make appointment when patient is discharged this is a walk in clinic only ) Prescriptions: Oseltamivir [Tamiflu] 75 mg PO BID #4 capsule Vancomycin Oral Soln [Firvanq] 125 mg PO QID #40 udc <Yves Cardona - Last Filed: 09/04/18 10:06> Date of Encounter: 09/03/18 Time of Encounter: 13:00 Assessment and Plan Discussion w patient/family: The assessment and plan as outlined above was discussed with the patient and/or family members who expressed understanding and agreement. All questions were answered. Thank you for involving us in the care of your patient. Please call with any questions. Results 09/02/18 06:15 09/03/18 06:50 Attestation Statement - Attestation Attestation: I examined this patient and my medical decision-making was reviewed with the Resident Physician. I agree with the documented findings, disposition and treatment plan as described except to the extent set forth below. CC: Shortness of breath. HPI: PT reports shortness of breath has improved, slept much better on O2 ROS: reviewed PMH: reviewed Labs, Xray, tele reviewed, no significant pauses IMP/Plan 1. Bradycardia, sinus arrest while hypoxic at night due to untreated ANNABEL, resolved with CPAP last pm, will continue to follow as outpatient in three to four weeks.
[2018-09-03] MEDS: *HR* OxyCODONE/APAP 5/325 TABLET PO PRN (08:36)
[2018-09-03] MEDS: Nicotine 14 MG PATCH.TD24 TD SCH (08:37)
[2018-09-03] MEDS: Gabapentin 400 MG CAPSULE PO SCH (08:46)
[2018-09-03 11:39] VITALS: BP 111/93
[2018-09-03] MEDS: Teriflunomide [Aubagio] 14 MG PO SCH (11:48)
--- NOTE | 2018-09-03 13:31 | Discharge Summary ---
- NOTES TO OUTPATIENT PROVIDER Notes to Outpatient Provider: Patient with a history of multiple sclerosis, COPD was hospitalized here with C. difficile diarrhea and influenza. She was started on treatment with oral vancomycin. She was also treated for COPD with bronchodilators. She did receive treatment for influenza with Tamiflu. During her stay here, she was noted to have electrophysiology was consulted and per their evaluation, the believe this is due to sleep apnea. Patient already has a CPAP at home but she has not been using it due to a broken mask. face worker is making arrangements for the patient to get a replacement. She will be discharged home today. She will complete treatment course with Tamiflu for infl uenza and vancomycin for her C. difficile diarrhea. Orders not resulted at time of discharge: Pending orders 09/01/18 11:56 Pancreatic Elastase, Fecal Routine 09/02/18 06:00 NM el perf SPECT multi [NM] Routine Date of Encounter: 09/03/18 Time of Encounter: 13:29 - Discharge Diagnosis (1) C. difficile diarrhea Priority: Primary Status: Acute (2) Influenza A Priority: Secondary Status: Acute (3) Hyperlipidemia Priority: Secondary Status: Chronic Qualifiers: Hyperlipidemia type: unspecified Qualified Code(s): E78.5 - Hyperlipidemia, unspecified (4) Hypokalemia Priority: Secondary Status: Acute (5) Multiple sclerosis Priority: Secondary Status: Chronic (6) Sinus bradycardia Priority: Secondary Status: Acute (7) Hypertension Priority: Secondary Status: Chronic Qualifiers: Hypertension type: essential hypertension Qualified Code(s): I10 - Essential (primary) hypertension (8) Diabetes mellitus, type 2 Priority: Secondary Status: Chronic Qualifiers: Diabetes mellitus senior living insulin use: without senior living use Diabetes mellitus complication status: without complication Qualified Code(s): E11.9 - Type 2 diabetes mellitus without complications (9) Protein-calorie malnutrition, severe Priority: Secondary Status: Acute Hospital course: Ms. Johnson is a 58 year old female Patient with a history of multiple sclerosis, COPD was hospitalized here with C. difficile diarrhea and influenza. She was started on treatment with oral vancomycin. She was also treated for COPD with bronchodilators. She did receive treatment for influenza with Tamiflu. During her stay here, she was noted to have electrophysiology was consulted and per their evaluation, the believe this is due to sleep apnea. Patient already has a CPAP at home but she has not been using it due to a broken mask. face worker is making arrangements for the patient to get a replacement. She will be discharged home today. She will complete treatment course with Tamiflu for influenza and vancomycin for her C. difficile diarrhea. Discharge discussed with: patient - Time Spent with Patient Total time spent providing and/or coordinating discharge services: Time spent: Greater than 30 minutes (40 min) - Discharge Medications Prescriptions: New Oseltamivir [Tamiflu] 75 mg PO BID #4 capsule Vancomycin Oral Soln [Firvanq] 125 mg PO QID #40 udc Continue Atorvastatin [Lipitor] 40 mg PO HS Bifidobacterium Infantis [Align] 4 mg PO DAILY Calcium Carbonate/Vitamin D3 [Calcium 500 + Vit D Caplet] 1 each PO BID Cetirizine HCl [24Hour Allergy] 10 mg PO DAILY Divalproex (12 HR) [Depakote (12 HR)] 500 mg PO BID Escitalopram [Lexapro] 10 mg PO DAILY Fluticasone Propionate Nasal [Flonase] 100 mcg NS DAILY PRN PRN Reason: allergies Furosemide [Lasix] 20 mg PO DAILY Lipase/Protease/Amylase [Zenpep Dr 40,000 Unit Capsule] 1 each PO TIDWM Vit #108/Iron/FA [ One Tablet] 1 each PO DAILY Simethicone [Gas-X] 80 mg PO TID OxyCODONE/APAP 5/325 [Percocet 5/325 MG] 1 each PO Q8HR PRN PRN Reason: Pain Gabapentin [Neurontin] 800 mg PO TID Lisinopril [Zestril] 2.5 mg PO DAILY Nabumetone [Relafen] 500 mg PO BID Raloxifene [Evista] 60 mg PO DAILY Aspirin 81 mg PO DAILY Donepezil HCl [Donepezil HCl Odt] 10 mg PO DAILY Clopidogrel [Plavix] 75 mg PO DAILY Topiramate [Topamax] 100 mg PO HS Quetiapine Fumarate [Seroquel] 50 mg PO HS Metformin [Glucophage] 500 mg PO DAILY Ferrous Sulfate 325 mg PO BID Ondansetron ODT [Zofran ODT] 4 mg SL BID PRN PRN Reason: n/v Ranitidine HCl [Zantac] 150 mg PO BID Albuterol Sulfate [Proair Respiclick] 90 mcg IH Q6H PRN PRN Reason: sob/wheezing Levomefolate/B6/B12/Algal Oil [Foltanx Rf Capsule] 1 each PO AD Teriflunomide [Aubagio] 7 mg PO DAILY Discontinued Teriflunomide [Aubagio] 7 mg PO DAILY Home Medications: Albuterol Sulfate [Proair Respiclick] 90 mcg IH Q6H PRN 03/07/15 [History] Aspirin 81 mg PO DAILY 03/07/15 [History] Clopidogrel [Plavix] 75 mg PO DAILY 03/07/15 [History] Donepezil HCl [Donepezil HCl Odt] 10 mg PO DAILY 03/07/15 [History] Ferrous Sulfate 325 mg PO BID 03/07/15 [History] Gabapentin [Neurontin] 800 mg PO TID 03/07/15 [History] Levomefolate/B6/B12/Algal Oil [Foltanx Rf Capsule] 1 each PO AD 03/07/15 [History] Lisinopril [Zestril] 2.5 mg PO DAILY 03/07/15 [History] Metformin [Glucophage] 500 mg PO DAILY 03/07/15 [History] Nabumetone [Relafen] 500 mg PO BID 03/07/15 [History] Ondansetron ODT [Zofran ODT] 4 mg SL BID PRN 03/07/15 [History] Quetiapine Fumarate [Seroquel] 50 mg PO HS 03/07/15 [History] Raloxifene [Evista] 60 mg PO DAILY 03/07/15 [History] Ranitidine HCl [Zantac] 150 mg PO BID 03/07/15 [History] Topiramate [Topamax] 100 mg PO HS 03/07/15 [History] Teriflunomide [Aubagio] 7 mg PO DAILY 03/11/18 [History] Atorvastatin [Lipitor] 40 mg PO HS 08/30/18 [History] Bifidobacterium Infantis [Align] 4 mg PO DAILY 08/30/18 [History] Calcium Carbonate/Vitamin D3 [Calcium 500 + Vit D Caplet] 1 each PO BID 08/30/18 [History] Cetirizine HCl [24Hour Allergy] 10 mg PO DAILY 08/30/18 [History] Divalproex (12 HR) [Depakote (12 HR)] 500 mg PO BID 08/30/18 [History] Escitalopram [Lexapro] 10 mg PO DAILY 08/30/18 [History] Fluticasone Propionate Nasal [Flonase] 100 mcg NS DAILY PRN 08/30/18 [History] Furosemide [Lasix] 20 mg PO DAILY 08/30/18 [History] Lipase/Protease/Amylase [Zenpep Dr 40,000 Unit Capsule] 1 each PO TIDWM 08/30/18 [History] Vit #108/Iron/FA [ One Tablet] 1 each PO DAILY 08/30/18 [History] Simethicone [Gas-X] 80 mg PO TID 08/30/18 [History] OxyCODONE/APAP 5/325 [Percocet 5/325 MG] 1 each PO Q8HR PRN 08/31/18 [History] Oseltamivir [Tamiflu] 75 mg PO BID #4 capsule 09/03/18 [Rx] Vancomycin Oral Soln [Firvanq] 125 mg PO QID #40 udc 09/03/18 [Rx] Allergies/Adverse Reactions: Allergy/AdvReac Type Severity Reaction Status Date / Time No Known Allergies Allergy Verified 06/29/18 14:37 Date of admission: 09/01/18 19:25 Primary care physician: Eleuterio Saleh CNP Consults: 08/30/18 16:28 Consult to Case Management [CONS] Routine Comment: Consult to Nutrition [CONS] Routine Comment: Consulting Provider: NUTRITION Reason for Dietary Consult: PO Supplementation Consult to Physical Therapy [CONS] Routine Comment: Evaluate, develop and implement POC Reason for Consult: dispostion Does patient have active BEDREST order?: No Is patient medically & hemodynamically stable?: Yes Patient assessed for mobility or mobilized this visit?: Yes 08/31/18 13:56 Consult to Gastroenterology [CONS] Routine Consulting Provider: [facility] [place] Reason for Consult: c.dif, ? malabsorbtion- was told she needs colonoscopy Call Completed: No 08/31/18 18:19 Consult to Cardiology [CONS] Routine Comment: Consulting Provider: [facility] [place] Reason for Consult: 3.8 pause, bradycardia spoke to Dr. Vinson and Dr. Miles Call Completed: Yes 09/01/18 14:10 Consult to Electrophysiology (EP) [CONS] Routine Consulting Provider: [facility] [place] Reason for Consult: sinus bradycardia with 3.8 second pause, eval for pacer Call Completed: Yes Discharging clinician: Inderjit Knowles Anticipated date of discharge: 09/03/18 - Constitutional Vitals: Temp Pulse Resp BP Pulse Ox 98.1 F 54 16 111/93 93 09/03/18 11:37 09/03/18 11:37 09/03/18 11:37 09/03/18 11:37 09/03/18 11:37 General appearance: Present: cooperative, pleasant, answers questions appropriately Exam: . - Respiratory Respiratory exam: Present: CTAB. Absent: accessory muscle use, rales, rhonchi, wheezes - Cardiovascular Cardiovascular exam: Present: RRR, +S1, +S2. Absent: diastolic murmur, gallop, rubs, systolic murmur - GI/Abdominal GI/Abdominal exam: Present: normal bowel sounds, soft, no peritoneal signs. Absent: distended, tenderness - Patient Status Disposition: Home, Self-Care Condition: Good Functional capacity at discharge: independent ambulation Overall status at discharge: patient is progressing back to baseline - Discharge Instructions Instructions: Clostridium Difficile Infection (DC), Chronic Obstructive Pulmonary Disease (DC) Follow Up With: Yves Cardona DO [Partnered Physician] - (Office to call patient with follow up appointment) Braulio Mendoza DO [Non-Partnered Physician] - (patient to call the office to make appointment when patient is discharged this is a walk in clinic only ) - Diet and Activity Activity: increase activity as tolerated, other (CPAP at bedtime and as needed) Diet: diabetic diet, low fat, low cholesterol, low salt diet
--- NOTE | 2018-09-04 18:15 | Electrocardiograph Report ---
[place] [id number] Test Date: 2018-08-30 Pat Name: Soraida Johnson Department: [id number] Room: 2N11 Gender: F [employer]: : 1960 Requested By: Gucci Mullins Order Number: [id number] Reading MD: Xi Vinson Measurements Intervals [place] Rate: 55 P: 49 [place]: 138 QRS: 33 QRSD: 89 T: 22 QT: 449 QTc: 430 Interpretive Statements Sinus rhythm Electronically Signed On 09-04-2018 18:13:33 EDT by Xi Vinson
== END 2018-09-03 15:59 | disposition home or self-care (01) | DRG 248 ==
LOC: EMEROOARM 10:28 → 3BNU 10:28 → 2NNU 08-31 18:11 → SUATTDRO 09-01 19:25
PROVIDERS: ADMIT Internal Medicine; ATTEND Internal Medicine